=== PATIENT | male | born 1960 | race Caucasian/White ===

== ENCOUNTER 2021-12-29 07:25 | Outpatient (REF) | payer MEDICAID, SELFPAY ==
--- NOTE | ~2021-12-29 | XR_ITS ---
EXAMINATION: XR shoulder RT min 2V CLINICAL INFORMATION: Reason for Exam M25.519 - Pain in unspecified shoulder COMPARISON: None TECHNIQUE: Three views of the shoulder. XR/XR shoulder RT min 2V FINDINGS/IMPRESSION: No acute fracture or dislocation. Mild to moderate degenerative changes of the shoulder worst involving the acromioclavicular joint with there is loss of joint space and degenerative spurring. Glenohumeral joint space is maintained. Soft tissues are unremarkable. Visualized portion of lung appears clear.
== END 2021-12-29 07:26 | disposition home or self-care (01) ==
LOC: HO.HOSX 07:25
PROVIDERS: Visit Provider Physician Assistant
DX: M75.101 Unspecified rotator cuff tear or rupture of right shoulder, not specified as traumatic (principal); E11.9 Type 2 diabetes mellitus without complications
CPT/HCPCS: 73030; J1020

== ENCOUNTER 2022-02-07 16:16 | Outpatient (REF) | payer MEDICAID, SELFPAY ==
--- NOTE | ~2022-02-07 | XR_ITS ---
EXAMINATION: XR RIBS, LEFT CLINICAL INFORMATION: Left-sided rib pain after injury 4 months ago COMPARISON: None TECHNIQUE: 3 views of the left ribs and one view of the chest were obtained. FINDINGS: Lungs are clear. No consolidation, pneumothorax, or pleural effusion. The cardiomediastinal silhouette and pulmonary vasculature are normal. No rib fracture is seen. The left acromioclavicular joint appears slightly widened measuring 1.2 cm. This could be better evaluated with acromioclavicular joints x-ray. XR/XR ribs LT min 3V w CXR1V IMPRESSION: No evidence for acute disease in the chest. No rib fracture. Question widened left acromioclavicular joint.
[2022-02-07 16:31] LABS: MANUAL DIFF FLAG NO
[2022-02-07 16:46] LABS: Basophils Percent Auto 0.5 % (0-2); Eosinophils Absolute Auto 0.1 X10*3/uL (0.0-0.4); Eosinophils Percent Auto 2.1 % (0-4); Hematocrit 38.5 % (42.0-52.0); Hemoglobin 13.8 g/dl (14.0-18.0); Imm Gran Abs Auto 0.02 X10*3/uL (0.00-0.03); Imm Gran Pct Auto 0.3 % (0.0-0.4); Lymphocytes Absolute Auto 1.1 X10*3/uL (1.2-4.9); Lymphocytes Percent Auto 17.8 % (20-40); Mean Corpuscular HGB Conc 35.8 g/dl (31.0-36.0); Mean Corpuscular Hemoglobin 30.2 pg (27.0-33.0); Mean Corpuscular Volume 84.2 fL (80.0-98.0); Mean Platelet Volume 10.3 fL (9.4-12.4); Monocytes Absolute Auto 0.4 X10*3/uL (0.1-1.2); Monocytes Percent Auto 5.7 % (2-11); Neutrophils Absolute Auto 4.5 x10*3/uL (2.0-8.3); Neutrophils Percent Auto 73.6 % (45-73); Platelet Count 161 X10*3/uL (160-400); Red Blood Count 4.57 X10*6/uL (4.60-5.80); Red Cell Distribution Width 12.8 % (11.0-16.0); White Blood Count 6.2 X10*3/uL (4.8-10.8)
[2022-02-07 17:49] LABS: Alanine Aminotransferase 22 U/L (0-40); Alkaline Phosphatase 114 U/L (39-117); Anion Gap 13 (12-20); Aspartate Amino Transferase 16 U/L (5-37); Bilirubin Total 0.7 mg/dL (0.0-1.0); Blood Urea Nitrogen 26 mg/dL (9-16); Calcium 9.3 mg/dL (8.4-10.2); Carbon Dioxide 28 mmol/L (22-29); Chloride 102 mmol/L (96-108); Estimated Glomerular Filt Rate 37; Glucose Random 484 mg/dL (60-115); Potassium 4.5 mmol/L (3.3-5.1); Sodium 138 mmol/L (135-145); Total Protein 6.8 g/dL (6.5-8.0)
[2022-02-07 17:54] LABS: Estimated Average Glucose 286 mg/dL; Hemoglobin A1c % 11.6 %
[2022-02-07 18:02] LABS: Creatinine Urine 51.27 mg/dL; Microalbum/Creatinine Ratio Ur 2034.3 ug/mg cr
== END 2022-02-07 16:17 | disposition home or self-care (01) ==
LOC: HO.LAB 16:16
PROVIDERS: Visit Provider Internal Medicine
DX: I12.9 Hypertensive chronic kidney disease with stage 1 through stage 4 chronic kidney disease, or unspecified chronic kidney disease (principal); N18.9 Chronic kidney disease, unspecified; E11.22 Type 2 diabetes mellitus with diabetic chronic kidney disease; R07.81 Pleurodynia
CPT/HCPCS: 36415; 71101; 80053; 82043; 83036; 85025

== ENCOUNTER 2022-03-23 11:32 | Outpatient (REF) | payer MEDICAID, SELFPAY ==
--- NOTE | ~2022-03-23 | US_ITS ---
EXAMINATION: US RETROPERITONEAL LIMITED (RENAL ONLY) CLINICAL INFORMATION: Chronic kidney disease. COMPARISON: None TECHNIQUE: Real-time imaging of the kidneys. FINDINGS: RIGHT KIDNEY: 11.9 x 5.0 x 5.9 cm (SAG x AP x TRV). The kidney is normal in size, contour, and echogenicity. There are persistent lobulations. Renal cortical thickness is normal. No renal calculi or hydronephrosis. At the interpolar aspect, a 5 mm anechoic, simple cyst is seen. LEFT KIDNEY: 13.4 x 5.1 x 5.1 cm (SAG x AP x TRV). The kidney is normal in size, contour, and echogenicity. There are persistent lobulations. Renal cortical thickness is normal. No calculi or focal parenchymal lesions. No hydronephrosis. US/US renal BI IMPRESSION: A small simple right renal cyst is incidentally noted. No imaging follow-up is recommended. The examination is otherwise unremarkable.
== END 2022-03-23 11:33 | disposition home or self-care (01) ==
LOC: HO.HMGCX 11:32
PROVIDERS: Visit Provider Internal Medicine
DX: N18.9 Chronic kidney disease, unspecified (principal); E11.9 Type 2 diabetes mellitus without complications
CPT/HCPCS: 76775

== ENCOUNTER 2022-04-16 14:14 | Outpatient (REF) | payer MEDICAID, SELFPAY ==
[2022-04-16 16:17] LABS: MANUAL DIFF FLAG NO
[2022-04-16 16:24] LABS: Basophils Percent Auto 0.7 % (0-2); Eosinophils Absolute Auto 0.1 X10*3/uL (0.0-0.4); Eosinophils Percent Auto 1.7 % (0-4); Hematocrit 36.1 % (42.0-52.0); Imm Gran Abs Auto 0.02 X10*3/uL (0.00-0.03); Imm Gran Pct Auto 0.4 % (0.0-0.4); Lymphocytes Absolute Auto 0.9 X10*3/uL (1.2-4.9); Lymphocytes Percent Auto 15.9 % (20-40); Mean Corpuscular Hemoglobin 30.4 pg (27.0-33.0); Mean Corpuscular Volume 84.5 fL (80.0-98.0); Mean Platelet Volume 10.7 fL (9.4-12.4); Monocytes Absolute Auto 0.3 X10*3/uL (0.1-1.2); Monocytes Percent Auto 5.4 % (2-11); Neutrophils Absolute Auto 4.1 x10*3/uL (2.0-8.3); Neutrophils Percent Auto 75.9 % (45-73); Platelet Count 162 X10*3/uL (160-400); Red Blood Count 4.27 X10*6/uL (4.60-5.80); Red Cell Distribution Width 12.5 % (11.0-16.0); White Blood Count 5.3 X10*3/uL (4.8-10.8)
[2022-04-16 16:36] LABS: Estimated Average Glucose 278 mg/dL; Hemoglobin A1c % 11.3 %
[2022-04-16 16:44] LABS: Creatinine Urine 55.43 mg/dL
[2022-04-16 16:50] LABS: Alanine Aminotransferase 17 U/L (0-40); Albumin Level 3.7 g/dL (3.5-5.0); Alkaline Phosphatase 109 U/L (39-117); Anion Gap 13 (12-20); Aspartate Amino Transferase 14 U/L (5-37); Bilirubin Total 0.6 mg/dL (0.0-1.0); Blood Urea Nitrogen 25 mg/dL (9-16); Calcium 8.7 mg/dL (8.4-10.2); Carbon Dioxide 26 mmol/L (22-29); Chloride 99 mmol/L (96-108); Estimated Glomerular Filt Rate 40; Glucose Random 521 mg/dL (60-115); Iron 113 mcg/dL (45-160); Percent Iron Saturation 40 % (15-50); Potassium 4.4 mmol/L (3.3-5.1); Sodium 134 mmol/L (135-145); Total Iron Binding Capacity 280 mcg/dL (228-428); Total Protein 6.2 g/dL (6.5-8.0); Unsaturated Iron Binding 167 ug/dL
[2022-04-16 17:00] LABS: Microalbum/Creatinine Ratio Ur 1533.4 ug/mg cr
== END 2022-04-16 14:15 | disposition home or self-care (01) ==
LOC: HO.HMGCLDS 14:14
PROVIDERS: PCP Internal Medicine; Visit Provider Internal Medicine
DX: E11.22 Type 2 diabetes mellitus with diabetic chronic kidney disease (principal); D63.1 Anemia in chronic kidney disease; N18.9 Chronic kidney disease, unspecified
CPT/HCPCS: 36415; 80053; 82043; 83036; 83540; 85025

== ENCOUNTER 2022-07-05 14:36 | Outpatient (REF) | payer MEDICAID, SELFPAY ==
--- NOTE | ~2022-07-05 | MR_ITS ---
EXAMINATION: MR THORACIC SPINE WITHOUT CONTRAST CLINICAL INFORMATION: Status post fall. Neuropathic pain. Rule out compression fracture. DDD. COMPARISON: None TECHNIQUE: MRI of the thoracic spine was obtained using routine sequences without contrast. FINDINGS: The thoracic vertebral bodies demonstrate normal alignment. Mild chronic nonedematous superior endplate compression fractures are seen at T6 and T7. The thoracic vertebral body heights are otherwise preserved. There is no significant disc height loss. The thoracic cord signal appears normal. No spinal canal or neural foraminal stenosis is seen. T5-T6: Mild central protrusion. T7-T8: Small right paracentral protrusion. T8-T9: Right paracentral protrusion. The extraspinal soft tissues are within normal limits. MR/MR thoracic spine wo con IMPRESSION: Mild chronic superior endplate compression fractures at T6 and T7. No significant narrowing of the spinal canal or neural foramina. No cord signal abnormality.
== END 2022-07-05 14:37 | disposition home or self-care (01) ==
LOC: HO.MRI 14:36
PROVIDERS: Visit Provider Internal Medicine
DX: R07.82 Intercostal pain (principal); Z91.81 History of falling
CPT/HCPCS: 72146

== ENCOUNTER 2022-08-13 08:43 | Outpatient (REF) | payer MEDICAID, SELFPAY ==
--- NOTE | ~2022-08-13 | CT_ITS ---
EXAMINATION: CT CHEST WITHOUT CONTRAST CLINICAL INFORMATION: Chest pain COMPARISON: Chest x-ray with Ribs 02/07/2022 TECHNIQUE: Multidetector volumetric CT imaging of the chest was done. Axial MIP volume rendering provided. Sagittal and coronal reformatted images were obtained. This CT examination was performed using dose optimization techniques as appropriate, variously including the following: *Automated exposure control *Adjustment of mA and/or kV according to patient size (this includes techniques or standardized protocols for targeted exams where dose is matched to indication/reason for exam; i.e. extremities or head) *Use of iterative reconstruction technique DLP: 109 mGy-cm FINDINGS: RECORDS CLERK: Well-expanded lungs. LUNGS: The lungs are well-expanded without any acute pneumonic process. There is a 3 mm noncalcified nodule right middle lobe axial image 311/7 and 4 mm calcified nodule right middle lobe axial image 397/7. There is no atelectatic changes, groundglass density or interstitial thickening. MEDIASTINUM: The thyroid lobes are symmetrical and normal. The central trachea and the bronchi widely patent. Heart size and the great vessels are normal caliber. No pericardial effusion seen. No abnormal size mediastinal or hilar lymph nodes. CORONARY ARTERY CALCIFICATION: None visualized on this study. PLEURA: There is no pleural effusion. No pleural mass or thickening. AXILLA: Small shotty lymph nodes are seen in the axilla. The chest wall is unremarkable. UPPER ABDOMEN: Multiple small radiopaque gallstones are noted. Visualized liver, spleen and bilateral adrenal glands and pancreas is unremarkable. OSSEOUS STRUCTURES: No aggressive lytic or sclerotic process seen. CT/CT chest wo IV con IMPRESSION: 1. There is a 3 mm noncalcified and 4 mm calcified nodules right middle lobe. 2. No abnormal mediastinal or axillary lymph nodes. 3. Cholelithiasis without wall thickening. Fleischner guidelines were followed.
== END 2022-08-13 08:44 | disposition home or self-care (01) ==
LOC: HO.CT 08:43
PROVIDERS: PCP Internal Medicine; Visit Provider Internal Medicine
DX: R07.9 Chest pain, unspecified (principal)
CPT/HCPCS: 71250

== ENCOUNTER 2022-10-29 10:44 | Outpatient (REF) | payer MEDICAID, SELFPAY ==
--- NOTE | ~2022-10-29 | XR_ITS ---
EXAMINATION: XR KNEE AP STANDING XR KNEE, LEFT CLINICAL INFORMATION: Pain. COMPARISON: None TECHNIQUE: AP bilateral standing view of the knees was obtained. Lateral and axial views of the left knee were obtained. FINDINGS: Bones and soft tissues are normal. No fracture or joint effusion. Alignment is anatomic. The bilateral joint space compartments are well maintained. No abnormal soft tissue calcification. There are atherosclerotic calcifications. There is left prepatellar soft tissue swelling. XR/XR knee standing BI IMPRESSION: 1. No fracture or dislocation is seen of the bilateral knees. 2. There is left prepatellar soft tissue swelling.
--- NOTE | ~2022-10-29 | XR_ITS ---
EXAMINATION: XR KNEE AP STANDING XR KNEE, LEFT CLINICAL INFORMATION: Pain. COMPARISON: None TECHNIQUE: AP bilateral standing view of the knees was obtained. Lateral and axial views of the left knee were obtained. FINDINGS: Bones and soft tissues are normal. No fracture or joint effusion. Alignment is anatomic. The bilateral joint space compartments are well maintained. No abnormal soft tissue calcification. There are atherosclerotic calcifications. There is left prepatellar soft tissue swelling. XR/XR knee LT 2V IMPRESSION: 1. No fracture or dislocation is seen of the bilateral knees. 2. There is left prepatellar soft tissue swelling.
== END 2022-10-29 10:45 | disposition home or self-care (01) ==
LOC: HO.HOSX 10:44
PROVIDERS: PCP Internal Medicine; Visit Provider Physician Assistant
DX: M25.561 Pain in right knee (principal); M25.562 Pain in left knee; M25.462 Effusion, left knee; M70.42 Prepatellar bursitis, left knee
CPT/HCPCS: 20610; 73560; 73565; 99202

== ENCOUNTER 2022-10-29 12:25 | Outpatient (REF) | payer MEDICAID, SELFPAY ==
[2022-10-29 13:36] LABS: MANUAL DIFF FLAG NO
[2022-10-29 13:42] LABS: Basophils Percent Auto 0.3 % (0-2); Eosinophils Absolute Auto 0.1 X10*3/uL (0.0-0.4); Eosinophils Percent Auto 1.7 % (0-4); Hematocrit 32.9 % (42.0-52.0); Hemoglobin 11.7 g/dl (14.0-18.0); Imm Gran Abs Auto 0.03 X10*3/uL (0.00-0.03); Imm Gran Pct Auto 0.5 % (0.0-0.4); Lymphocytes Absolute Auto 0.9 X10*3/uL (1.2-4.9); Lymphocytes Percent Auto 15.4 % (20-40); Mean Corpuscular HGB Conc 35.6 g/dl (31.0-36.0); Mean Corpuscular Hemoglobin 30.1 pg (27.0-33.0); Mean Corpuscular Volume 84.6 fL (80.0-98.0); Mean Platelet Volume 10.2 fL (9.4-12.4); Monocytes Absolute Auto 0.5 X10*3/uL (0.1-1.2); Monocytes Percent Auto 8.3 % (2-11); Neutrophils Absolute Auto 4.5 x10*3/uL (2.0-8.3); Neutrophils Percent Auto 73.8 % (45-73); Platelet Count 198 X10*3/uL (160-400); Red Blood Count 3.89 X10*6/uL (4.60-5.80); Red Cell Distribution Width 12.5 % (11.0-16.0)
[2022-10-29 13:51] LABS: Estimated Average Glucose 217 mg/dL; Hemoglobin A1c % 9.2 %
[2022-10-29 14:41] LABS: Creatinine Urine 74.15 mg/dL
[2022-10-29 14:42] LABS: Alanine Aminotransferase 10 U/L (0-40); Albumin Level 3.3 g/dL (3.5-5.0); Alkaline Phosphatase 93 U/L (39-117); Anion Gap 10 (12-20); Aspartate Amino Transferase 10 U/L (5-37); Bilirubin Total 0.5 mg/dL (0.0-1.0); Blood Urea Nitrogen 24 mg/dL (9-16); Calcium 8.8 mg/dL (8.4-10.2); Carbon Dioxide 29 mmol/L (22-29); Chloride 102 mmol/L (96-108); Estimated Glomerular Filt Rate 40; Glucose Random 345 mg/dL (60-115); Sodium 137 mmol/L (135-145); Total Protein 6.1 g/dL (6.5-8.0); Uric Acid 2.7 mg/dL (3.4-7.0)
[2022-10-29 14:57] LABS: Microalbum/Creatinine Ratio Ur 2258.9 ug/mg cr
== END 2022-10-29 12:26 | disposition home or self-care (01) ==
LOC: HO.10HDL 12:25
PROVIDERS: Visit Provider Internal Medicine
DX: I12.9 Hypertensive chronic kidney disease with stage 1 through stage 4 chronic kidney disease, or unspecified chronic kidney disease (principal); E11.22 Type 2 diabetes mellitus with diabetic chronic kidney disease; N18.9 Chronic kidney disease, unspecified; M25.562 Pain in left knee
CPT/HCPCS: 36415; 80053; 82043; 83036; 84550; 85025

== ENCOUNTER 2022-10-29 12:43 | Outpatient (REF) | payer MEDICAID, SELFPAY ==
--- NOTE | ~2022-10-29 | US_ITS ---
EXAMINATION: US VENOUS ULTRASOUND WITH DOPPLER LOWER EXTREMITY, LEFT CLINICAL INFORMATION: Left lower extremity edema. COMPARISON: None. TECHNIQUE: Ultrasound of the deep veins is performed from the hip to the calf with compression sonography and color and pulse Doppler assessment. Spectral analysis with color-flow imaging is performed. FINDINGS: Hyperechoic filling defects in the proximal left great saphenous vein at approximately 1 cm from the saphenofemoral junction with patent flow on color Doppler. Otherwise, the visualized common femoral vein, superficial femoral vein, profunda femoral vein, popliteal vein, and the trifurcation region shows no evidence of deep venous thrombosis. There is no significant popliteal fossa cyst. Bilateral inguinal lymphadenopathy, for example measuring 4.5 x 0.9 x 2.4 cm in the right groin. US/US venous duplex LE LT IMPRESSION: 1. Age-indeterminate hyperechoic filling defects in the proximal left great saphenous vein could be related with nonocclusive thrombosis. 2. Bilateral inguinal lymphadenopathy.
== END 2022-10-29 12:44 | disposition home or self-care (01) ==
LOC: HO.US 12:43
PROVIDERS: PCP Internal Medicine; Visit Provider Internal Medicine
DX: R22.42 Localized swelling, mass and lump, left lower limb (principal)
CPT/HCPCS: 93971

== ENCOUNTER → 2022-11-01 10:39 | Outpatient (BNVA) | payer MEDICAID, SELFPAY | PROVIDERS: PCP Internal Medicine; Visit Provider Physician Assistant | DX: M25.462 Effusion, left knee (principal); M70.42 Prepatellar bursitis, left knee | CPT/HCPCS: 99212 ==

== ENCOUNTER → 2022-11-12 11:26 | Outpatient (BNVA) | payer MEDICAID, SELFPAY | PROVIDERS: PCP Internal Medicine; Visit Provider Physician Assistant | DX: M25.462 Effusion, left knee (principal); M70.42 Prepatellar bursitis, left knee | CPT/HCPCS: 99212 ==

== ENCOUNTER 2022-12-24 13:13 | Outpatient (REF) | payer MEDICAID, SELFPAY ==
--- NOTE | ~2022-12-24 | XR_ITS ---
EXAMINATION: XR FOOT, RIGHT CLINICAL INFORMATION: Ulcer. COMPARISON: None available. TECHNIQUE: AP, lateral, and oblique views of the right foot. FINDINGS: Ankle mortise and subtalar joints are normal. No visible acute fracture or dislocation seen. There are vascular calcifications noted. There is mild soft tissue swelling dorsal mid and distal foot. XR/XR foot RT min 3V IMPRESSION: Mild soft tissue swelling dorsal mid and distal foot. No visible acute fracture, dislocation or subluxation seen.
[2022-12-24 14:10] LABS: MANUAL DIFF FLAG NO
[2022-12-24 14:32] LABS: Estimated Average Glucose 235 mg/dL; Hemoglobin A1c % 9.8 %
[2022-12-24 14:35] LABS: Basophils Percent Auto 0.3 % (0-2); Eosinophils Absolute Auto 0.1 X10*3/uL (0.0-0.4); Hemoglobin 11.6 g/dl (14.0-18.0); Imm Gran Abs Auto 0.07 X10*3/uL (0.00-0.03); Imm Gran Pct Auto 0.6 % (0.0-0.4); Lymphocytes Absolute Auto 0.7 X10*3/uL (1.2-4.9); Lymphocytes Percent Auto 6.8 % (20-40); Mean Corpuscular HGB Conc 35.2 g/dl (31.0-36.0); Mean Corpuscular Volume 85.3 fL (80.0-98.0); Monocytes Absolute Auto 0.7 X10*3/uL (0.1-1.2); Monocytes Percent Auto 6.3 % (2-11); Neutrophils Absolute Auto 9.2 x10*3/uL (2.0-8.3); Platelet Count 257 X10*3/uL (160-400); Red Blood Count 3.87 X10*6/uL (4.60-5.80); Red Cell Distribution Width 12.4 % (11.0-16.0); White Blood Count 10.8 X10*3/uL (4.8-10.8)
[2022-12-24 15:14] LABS: Alanine Aminotransferase 18 U/L (0-40); Albumin Level 3.1 g/dL (3.5-5.0); Alkaline Phosphatase 152 U/L (39-117); Aspartate Amino Transferase 13 U/L (5-37); Bilirubin Total 0.6 mg/dL (0.0-1.0); Blood Urea Nitrogen 45 mg/dL (9-16); C Reactive Protein 11.64 mg/dL (< or = 0.50); Calcium 8.7 mg/dL (8.4-10.2); Estimated Glomerular Filt Rate 33; Total Protein 6.2 g/dL (6.5-8.0)
[2022-12-24 15:15] LABS: Anion Gap 13 (12-20); Carbon Dioxide 27 mmol/L (22-29); Chloride 99 mmol/L (96-108); Potassium 4.5 mmol/L (3.3-5.1); Sodium 134 mmol/L (135-145)
[2022-12-24 15:23] LABS: Glucose Random 413 mg/dL (60-115)
== END 2022-12-24 13:14 | disposition home or self-care (01) ==
LOC: HO.10HDL 13:13
PROVIDERS: Visit Provider Internal Medicine
DX: I12.9 Hypertensive chronic kidney disease with stage 1 through stage 4 chronic kidney disease, or unspecified chronic kidney disease (principal); E11.22 Type 2 diabetes mellitus with diabetic chronic kidney disease; N18.9 Chronic kidney disease, unspecified; L97.519 Non-pressure chronic ulcer of other part of right foot with unspecified severity
CPT/HCPCS: 36415; 73630; 80053; 83036; 85025; 86140; 87070; 87205

== ENCOUNTER → 2022-12-25 13:55 | Outpatient (BNVA) | payer MEDICAID, SELFPAY | PROVIDERS: PCP Internal Medicine; Visit Provider Surgery | DX: E11.628 Type 2 diabetes mellitus with other skin complications (principal); T14.8XXA Other injury of unspecified body region, initial encounter | CPT/HCPCS: 99202 ==

== ENCOUNTER → 2022-12-27 14:14 | Outpatient (BNVA) | payer MEDICAID, SELFPAY | PROVIDERS: PCP Internal Medicine; Visit Provider Surgery | DX: Z48.00 Encounter for change or removal of nonsurgical wound dressing (principal) | CPT/HCPCS: 99211 ==

== ENCOUNTER → 2022-12-28 10:49 | Outpatient (BNVA) | payer MEDICAID, SELFPAY | PROVIDERS: PCP Internal Medicine; Visit Provider Surgery | DX: Z48.00 Encounter for change or removal of nonsurgical wound dressing (principal) | CPT/HCPCS: 99211 ==

== ENCOUNTER → 2022-12-31 14:38 | Outpatient (BNVA) | payer MEDICAID, SELFPAY | PROVIDERS: PCP Internal Medicine; Visit Provider Surgery | DX: Z48.00 Encounter for change or removal of nonsurgical wound dressing (principal) | CPT/HCPCS: 99211 ==

== ENCOUNTER → 2023-01-04 10:56 | Outpatient (BNVA) | payer MEDICAID, SELFPAY | PROVIDERS: PCP Internal Medicine; Visit Provider Surgery | DX: Z09 Encounter for follow-up examination after completed treatment for conditions other than malignant neoplasm (principal); S91.309D Unspecified open wound, unspecified foot, subsequent encounter; R60.9 Edema, unspecified | CPT/HCPCS: 99212 ==

== ENCOUNTER → 2023-01-14 14:55 | Outpatient (BNVA) | payer MEDICAID, SELFPAY | PROVIDERS: PCP Internal Medicine; Referring Provider Internal Medicine; Visit Provider Surgery | DX: Z48.00 Encounter for change or removal of nonsurgical wound dressing (principal) | CPT/HCPCS: 99211 ==

== ENCOUNTER → 2023-01-16 08:21 | Outpatient (BNVA) | payer MEDICAID, SELFPAY | PROVIDERS: PCP Internal Medicine; Visit Provider Surgery | DX: S91.301D Unspecified open wound, right foot, subsequent encounter (principal) | CPT/HCPCS: 99212 ==

== ENCOUNTER → 2023-01-23 10:47 | Outpatient (BNVA) | payer MEDICAID, SELFPAY | PROVIDERS: PCP Internal Medicine; Visit Provider Surgery | DX: S91.001D Unspecified open wound, right ankle, subsequent encounter (principal) | CPT/HCPCS: 99212 ==

== ENCOUNTER 2023-01-25 11:18 | Outpatient (REF) | payer MEDICAID, SELFPAY ==
[2023-01-25 13:12] LABS: MANUAL DIFF FLAG NO
[2023-01-25 13:20] LABS: Basophils Percent Auto 0.5 % (0-2); Eosinophils Absolute Auto 0.1 X10*3/uL (0.0-0.4); Eosinophils Percent Auto 1.8 % (0-4); Hematocrit 31.7 % (42.0-52.0); Hemoglobin 10.7 g/dl (14.0-18.0); Imm Gran Abs Auto 0.01 X10*3/uL (0.00-0.03); Imm Gran Pct Auto 0.2 % (0.0-0.4); Lymphocytes Absolute Auto 0.9 X10*3/uL (1.2-4.9); Lymphocytes Percent Auto 16.1 % (20-40); Mean Corpuscular HGB Conc 33.8 g/dl (31.0-36.0); Mean Corpuscular Hemoglobin 29.6 pg (27.0-33.0); Mean Corpuscular Volume 87.8 fL (80.0-98.0); Mean Platelet Volume 10.8 fL (9.4-12.4); Monocytes Absolute Auto 0.4 X10*3/uL (0.1-1.2); Monocytes Percent Auto 6.4 % (2-11); Neutrophils Absolute Auto 4.2 x10*3/uL (2.0-8.3); Platelet Count 154 X10*3/uL (160-400); Red Blood Count 3.61 X10*6/uL (4.60-5.80); Red Cell Distribution Width 14.2 % (11.0-16.0); White Blood Count 5.7 X10*3/uL (4.8-10.8)
[2023-01-25 13:37] LABS: Estimated Average Glucose 235 mg/dL; Hemoglobin A1c % 9.8 %
[2023-01-25 13:59] LABS: Alanine Aminotransferase 12 U/L (0-40); Albumin Level 3.5 g/dL (3.5-5.0); Alkaline Phosphatase 93 U/L (39-117); Anion Gap 11 (12-20); Aspartate Amino Transferase 15 U/L (5-37); Bilirubin Total 0.5 mg/dL (0.0-1.0); Blood Urea Nitrogen 30 mg/dL (9-16); C Reactive Protein < 0.10 mg/dL (< or = 0.50); Calcium 9.1 mg/dL (8.4-10.2); Carbon Dioxide 26 mmol/L (22-29); Chloride 105 mmol/L (96-108); Estimated Glomerular Filt Rate 38; Glucose Random 287 mg/dL (60-115); Potassium 4.3 mmol/L (3.3-5.1); Sodium 138 mmol/L (135-145); Total Protein 6.7 g/dL (6.5-8.0)
[2023-01-25 14:16] LABS: Erythrocyte Sedimentation Rate 34 MM/HR (0-15)
== END 2023-01-25 11:19 | disposition home or self-care (01) ==
LOC: HO.10HDL 11:18
PROVIDERS: Visit Provider Internal Medicine
DX: I12.9 Hypertensive chronic kidney disease with stage 1 through stage 4 chronic kidney disease, or unspecified chronic kidney disease (principal); E11.22 Type 2 diabetes mellitus with diabetic chronic kidney disease; N18.9 Chronic kidney disease, unspecified; R51.9 Headache, unspecified
CPT/HCPCS: 36415; 80053; 83036; 85025; 85652; 86140

== ENCOUNTER 2023-02-15 07:49 | Outpatient (REF) | payer MEDICAID, SELFPAY ==
--- NOTE | ~2023-02-15 | MR_ITS ---
EXAMINATION: MR CERVICAL SPINE WITHOUT CONTRAST CLINICAL INFORMATION: 62-year-old with trunk numbness status post fall. Evaluate for stenosis, myelopathy. COMPARISON: None available. TECHNIQUE: MRI of the cervical spine was obtained using routine sequences without contrast. FINDINGS: Alignment: Lordotic curvature is maintained. There is trace anterolisthesis at C7-T1. Craniocervical Junction/C1-C2 Articulations: The atlantooccipital joints are intact and aligned. There is [id number] retrolisthesis of the right C1-C2 facet joint, which is nonspecific but could be secondary to a mild degree of head rotation and/or ligamentous laxity. There are some degenerative changes at the atlantooccipital joints bilaterally with a small effusion at the right atlantooccipital joint. Visualized Intracranial Structures: Within normal limits. Vertebral Bodies: Vertebral body heights are well-maintained. Disc Spaces and Endplates: Severe disc space height loss at C6-C7 and moderate to severe disc space height loss at C5-C6 noted with disc desiccation, Schmorl's nodes and spondylosis at these levels. Mild disc space height loss at C7-T1. Bone Marrow: Type II degenerative marrow signal changes noted along the endplates at C5-C6 and C6-C7. No suspicious marrow replacing process or bone marrow edema. C2-C3: Small posterior disc osteophyte complex noted with slight indentation of the ventral thecal sac without cord impingement. Ligamentum flavum thickening is noted with borderline spinal canal stenosis. There is minor uncinate process spurring bilaterally with mild left and moderate right-sided facet arthropathy. There is moderate right-sided and mild left-sided neural foraminal stenosis. C3-C4: Shallow central to right paramedian disc protrusion, with flattening of the ventral dural sac without cord impingement. Borderline spinal canal stenosis. Uncovertebral spurring noted bilaterally with minor facet arthropathy without significant neural foraminal stenosis. C4-C5: Central to right paramedian disc protrusion with effacement of the ventral dural sac slightly to the right of midline with slight ventral cord flattening on the right and mild ligamentum flavum thickening with mild central spinal canal stenosis. There is uncovertebral spurring bilaterally and mild to moderate bilateral facet arthropathy with mild to moderate right-sided neural foraminal stenosis. C5-C6: Posterolateral disc osteophyte complex is noted with flattening of the ventral dural sac without cord impingement. Borderline to mild spinal canal stenosis is noted. Bilateral uncovertebral spurring and minor facet arthropathy is noted with moderate to severe bilateral neural foraminal stenosis. C6-C7: Broad-based disc osteophyte complex noted, with flattening of the ventral dural sac with mild spinal canal stenosis. Bilateral uncovertebral spurring is noted, left more than right with severe left-sided and mild right-sided neural foraminal stenosis. C7-T1: Trace unroofing of the posterior disc margin is noted with slight flattening of the ventral dural sac without cord impingement or canal stenosis. There is moderate left and mild right facet arthropathy with posterolateral disc osteophyte complex, left more than right. There is moderate to severe left-sided and mild right-sided neural foraminal stenosis. T1-T2: Minor posterolateral disc osteophyte complex on the left without significant canal stenosis. Minor foraminal narrowing on the left. Spinal Cord: The cervical and visualized upper thoracic spinal cord demonstrates normal signal intensity without focal lesion, edema or syrinx. Extracranial Soft Tissues: The visualized extracranial head/neck soft tissues are unremarkable within the limitations of the study. Signal voids are seen in the visualized major arterial structures throughout the neck. No prevertebral soft tissue swelling. MR/MR cervical spine wo con IMPRESSION: 1. Multilevel DDD and spondylosis, with multilevel disc osteophyte complexes and disc protrusions as described above with mild degrees of spinal canal stenosis with slight right-sided ventral cord flattening at C4-C5. 2. Multilevel DJD as described above with multilevel bilateral neural foraminal stenosis, most significant on the left at C6-C7 and bilaterally at C5-C6. 3. Degenerative changes at the atlantooccipital joints with retrolisthesis of the right C1-C2 facet joint and degenerative changes at the atlantooccipital joints with a small right atlantooccipital joint effusion.
== END 2023-02-15 07:50 | disposition home or self-care (01) ==
LOC: HO.MRI 07:49
PROVIDERS: PCP Internal Medicine; Visit Provider Psychiatry & Neurology Neurology
DX: R20.0 Anesthesia of skin (principal); M48.04 Spinal stenosis, thoracic region
CPT/HCPCS: 72141

== ENCOUNTER → 2023-03-08 08:48 | Outpatient (BNVA) | payer MEDICAID, SELFPAY | PROVIDERS: PCP Internal Medicine; Visit Provider Surgery | DX: Z09 Encounter for follow-up examination after completed treatment for conditions other than malignant neoplasm (principal); E10.628 Type 1 diabetes mellitus with other skin complications; S91.309D Unspecified open wound, unspecified foot, subsequent encounter | CPT/HCPCS: 99212 ==

== ENCOUNTER 2023-05-10 11:33 | Outpatient (REF) | payer MEDICAID, SELFPAY ==
[2023-05-10 13:20] LABS: MANUAL DIFF FLAG NO
[2023-05-10 13:31] LABS: Basophils Percent Auto 0.5 % (0-2); Eosinophils Absolute Auto 0.1 X10*3/uL (0.0-0.4); Eosinophils Percent Auto 2.2 % (0-4); Hematocrit 33.2 % (42.0-52.0); Hemoglobin 11.8 g/dl (14.0-18.0); Imm Gran Abs Auto 0.02 X10*3/uL (0.00-0.03); Imm Gran Pct Auto 0.4 % (0.0-0.4); Lymphocytes Absolute Auto 0.9 X10*3/uL (1.2-4.9); Lymphocytes Percent Auto 17.2 % (20-40); Mean Corpuscular HGB Conc 35.5 g/dl (31.0-36.0); Mean Corpuscular Hemoglobin 31.1 pg (27.0-33.0); Mean Corpuscular Volume 87.4 fL (80.0-98.0); Mean Platelet Volume 11.3 fL (9.4-12.4); Monocytes Absolute Auto 0.3 X10*3/uL (0.1-1.2); Monocytes Percent Auto 5.5 % (2-11); Neutrophils Absolute Auto 4.1 x10*3/uL (2.0-8.3); Neutrophils Percent Auto 74.2 % (45-73); Platelet Count 135 X10*3/uL (160-400); Red Cell Distribution Width 12.7 % (11.0-16.0); White Blood Count 5.5 X10*3/uL (4.8-10.8)
[2023-05-10 13:33] LABS: Estimated Average Glucose 226 mg/dL; Hemoglobin A1c % 9.5 % (<6.0)
[2023-05-10 14:15] LABS: Anion Gap 10 (12-20); Blood Urea Nitrogen 33 mg/dL (9-16); Calcium 9.1 mg/dL (8.4-10.2); Carbon Dioxide 27 mmol/L (22-29); Chloride 103 mmol/L (96-108); Estimated Glomerular Filt Rate 33; Glucose Random 359 mg/dL (60-115); Potassium 4.1 mmol/L (3.3-5.1); Sodium 136 mmol/L (135-145)
== END 2023-05-10 11:34 | disposition home or self-care (01) ==
LOC: HO.10HDL 11:33
PROVIDERS: Visit Provider Internal Medicine
DX: E11.22 Type 2 diabetes mellitus with diabetic chronic kidney disease (principal); I12.9 Hypertensive chronic kidney disease with stage 1 through stage 4 chronic kidney disease, or unspecified chronic kidney disease; N18.9 Chronic kidney disease, unspecified
CPT/HCPCS: 36415; 80048; 83036; 85025

== ENCOUNTER 2023-06-14 10:53 | Outpatient (REF) | payer MEDICAID, SELFPAY ==
--- NOTE | ~2023-06-14 | MR_ITS ---
MRI OF THE BRAIN WITHOUT IV CONTRAST INDICATION: PARESTHESIA ANESTHESIA R/O M.S. COMPARISON: None available. TECHNIQUE: Multiplanar multisequence MR imaging of the brain was obtained without IV contrast. FINDINGS: There is no hydrocephalus, extra-axial surface collection, or herniation. There is global cerebral volume loss. There are extensive T2 signal changes scattered throughout the supratentorial white matter and in an overall nonspecific distribution. Findings could be seen in the setting of chronic microangiopathy, demyelinating disease, and a variety of additional white matter processes. The major flow voids at the skull base are preserved. There is no acute infarct on diffusion-weighted imaging. There is no intracranial hemorrhage on the gradient recalled echo acquisition. The midline structures are normal. The cerebellar tonsils are normally positioned. The The craniocervical junction is normal. Osseous marrow signal intensity is homogenous. The visualized soft tissues are unremarkable. MR/MR head/brain wo con IMPRESSION: There are extensive T2 signal changes scattered throughout the supratentorial white matter and in an overall nonspecific distribution. Findings could be seen in the setting of chronic microangiopathy, demyelinating disease, and a variety of additional white matter processes. There is global cerebral volume loss.
== END 2023-06-14 10:54 | disposition home or self-care (01) ==
LOC: HO.MRI 10:53
PROVIDERS: PCP Internal Medicine; Visit Provider Psychiatry & Neurology Neurology
DX: R20.0 Anesthesia of skin (principal); R20.2 Paresthesia of skin; G35 Multiple sclerosis
CPT/HCPCS: 70551

== ENCOUNTER 2023-10-24 12:22 | Outpatient (REF) | payer MEDICAID, SELFPAY ==
[2023-10-24 13:37] LABS: Appearance Urine Clear; Color Urine Yellow; Glucose Urine UA >=1000 mg/dL (Negative); Leukocyte Esterase Urine Negative (Negative); Nitrite Urine Negative (Negative); PH 5.5 (5.0-9.0); Specific Gravity - Urine 1.025 (1.005-1.025); UMIC TRIGGER UACC YES; Urine Blood Moderate (2+) (Negative); Urine Ketones Negative (Negative); Urine Protein 300 (3+) mg/dL (Neg-Trace)
[2023-10-24 13:59] LABS: Bacteria Urine 1+ (None Seen); Hyaline Casts Urine 0-2 /LPF (0-2); Squamous Epithelial Cell Urine 0-2 /HPF (0-2); UACC Culture Trigger YES
== END 2023-10-24 12:23 | disposition home or self-care (01) ==
LOC: HO.10HDLNP 12:22
PROVIDERS: Visit Provider Internal Medicine
DX: R30.0 Dysuria (principal); E11.9 Type 2 diabetes mellitus without complications; I10 Essential (primary) hypertension; N18.9 Chronic kidney disease, unspecified
CPT/HCPCS: 81001; 87086; 87088; 87186

== ENCOUNTER 2024-03-09 10:46 | Outpatient (REF) | payer MEDICAID, SELFPAY ==
--- NOTE | ~2024-03-09 | XR_ITS ---
EXAMINATION: XR KNEE, LEFT CLINICAL INFORMATION: Left knee pain COMPARISON: Radiographs 10/29/2022 TECHNIQUE: AP standing view both knees. Lateral and sunrise views of the left knee. FINDINGS: Anterior soft tissue swelling, less than previous. No fracture or malalignment. Prominent vascular calcifications are noted. No joint space narrowing. Probable joint effusion. XR/XR knee LT 3V IMPRESSION: Anterior soft tissue swelling, less than previous. Probable joint effusion. No acute osseous abnormality.
== END 2024-03-09 10:47 | disposition home or self-care (01) ==
LOC: HO.HOSX 10:46
PROVIDERS: Visit Provider Physician Assistant
DX: M17.12 Unilateral primary osteoarthritis, left knee (principal)
CPT/HCPCS: 20610; 73562; 99212; J1010

== ENCOUNTER 2024-03-09 10:52 | Outpatient (AMB) | payer MEDICAID, SELFPAY ==
--- NOTE | 2024-03-09 11:16 | MHC.OFFVIS ---
Vital Signs 03/09/24 11:23 Height 5 ft 7 in Weight 120 lb BMI 18.8 Handedness Right Intake Visit Reasons: [employer] - LT knee pain Intake Note: Juanito is a 63 year old male who presents today as a new patient for a evaluation of his left knee pain. Patient reports ongoing pain for about 6 months. He states that his pain is mainly on the medial and lateral of the knee. Pain is worse when he is bending his knee and when he is getting up from a sitting position. Patient has tried and failed 3+ months NSAIDs/Tylenol with no relief. Patient has tied and failed 3+ months of at home exercises/knee brace. Allergies No Known Allergies Allergy (Verified 03/09/24 11:25) Medication List - Last Reconciled 03/09/24 by Lilli Rodriguez PA-C amlodipine 5 mg PO DAILY atorvastatin 40 mg PO BEDTIME carvedilol 12.5 mg PO BID dulaglutide (Trulicity) mg subcut QWEEK flash glucose sensor (YieldPlanetStyle Andre 14 Day Sensor kit) As directed gabapentin 100 mg PO DAILY glipizide ER 5 mg PO BID hydralazine 25 mg PO TID insulin glargine (Lantus Solostar U-100 Insulin) 20 units subcut QAM insulin lispro (Humalog KwikPen (U-100) Insulin) subcut lisinopril 5 mg PO DAILY mirtazapine 15 mg PO QPM naproxen 250 mg PO BID pen needle, diabetic (BD Ultra-Fine Short Pen Needle) As directed sulfamethoxazole-trimethoprim 800-160 mg (Bactrim DS) 1 tab PO BID 10 days HPI HPI [employer] - LT knee pain: Details: 63-year-old male who presents to the office today for an evaluation of left knee pain for 6 months. He states he has pain at the medial aspect and lateral aspect of his knee that is worse with bending and getting up from a sitting position. He denies any pain with twisting motions. He has tried 3+ months of Tylenol as well as 3+ months of home exercises and knee brace without relief. He has a history of diabetes. His sugar level is well controlled. [facility] Medical History Diabetic acidosis, type I High blood pressure High cholesterol Kidney disease Social History (Updated 03/09/24 @ 11:23 by Sebastien Monroy) Alcohol intake: current Alcohol intake frequency: holidays/special occasions only Patient Tobacco Use Status: Never used Tobacco Current occupational status: employed 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 Review of Systems Const All systems reviewed & are unremarkable except as noted in HPI and below Physical Exam Vital Signs: BMI result Body Mass Index 18.8 Const General: cooperative, healthy appearing, comfortable, no acute distress, well developed and alert Orientation/consciousness: patient oriented x3 HEENT Head: Yes normal to inspection, Yes normocephalic and Yes atraumatic Eyes General: appearance normal, both eyes and all related structures Resp Effort & Inspection: normal respiratory effort and able to speak in complete sentences Cardio Rate: regular rate Peripheral pulses: Peripheral pulses 2+ throughout GI Palpation (GI): Soft to palpation Skin Lesions: no lesions Rashes: no rashes Neuro General: patient oriented x3 Extrem Other: Left knee: Skin intact, no erythema or joint effusion. Tenderness along the medial joint line. Full ROM with crepitus. Negative Naveen?s. No ligamentous laxity. NVI. ? Office Procedures Joint Injection/Drain Joint Injection/Drain Primary Site: left knee Prep: site was prepped using aseptic technique, ethochloride spray was applied and injection warnings given Injected: 80 mg of, DepoMedrol, with 8 mL of, 1% plain lidocaine and in the joint Approach Used: anterolateral Procedure: The patient tolerated the procedure well and there was some relief with the local anesthesia Coding 88115 - Glenohumeral/Tronchanteric Bursa/Intraarticular Procedure code (CPT) selection complete Assessment & Plan Assessment & Plan (1) Osteoarthritis of left knee: Code(s): M17.12 - Unilateral primary osteoarthritis, left knee Category: Medical Plan We discussed options today, which include steroid injection. The patient did consent to move forward with the left knee injection, which was tolerated well. I recommended rest, ice, and elevation and OTC anti-inflammatories as needed for discomfort. If symptoms persist or worsen over the next 6-8 weeks, patient will contact the office, otherwise follow-up as needed. Orders: Orders XR knee LT 3V 03/09/24 M25.562 - Pain in left knee Patient Instructions: Scribed for Ta-Ale Meuse, PA-C, by James Harvey medical billing coordinator, on 03/09/2024 at 10:45 AM EST.? I, Lilli Rodriguez PA-C, have personally reviewed and agree with the information entered by the scribe. Coding Level of Care Code Est Pt Level 3 (27245) Diagnoses Osteoarthritis of left knee M17.12 CPT Codes Coding - Joint 7: 94664 - Glenohumeral/Tronchanteric Bursa/Intraarticular ([id number])
[2024-03-09 11:23] VITALS: BMI 18.8
== END 2024-03-09 11:44 | disposition home or self-care (01) ==
PROVIDERS: PCP Internal Medicine; Visit Provider Physician Assistant
DX: M17.12 Unilateral primary osteoarthritis, left knee (principal)
CPT/HCPCS: 20610; 99213

== ENCOUNTER 2024-07-03 11:31 | Outpatient (REF) | payer MEDICAID, SELFPAY ==
[2024-07-03 11:52] LABS: MANUAL DIFF FLAG NO
[2024-07-03 12:32] LABS: Basophils Percent Auto 0.7 % (0-2); Eosinophils Absolute Auto 0.2 X10*3/uL (0.0-0.4); Hematocrit 32.5 % (42.0-52.0); Hemoglobin 11.2 g/dl (14.0-18.0); Imm Gran Abs Auto 0.02 X10*3/uL (0.00-0.03); Imm Gran Pct Auto 0.4 % (0.0-0.4); Lymphocytes Absolute Auto 0.7 X10*3/uL (1.2-4.9); Lymphocytes Percent Auto 13.2 % (20-40); Mean Corpuscular HGB Conc 34.5 g/dl (31.0-36.0); Mean Corpuscular Hemoglobin 31.5 pg (27.0-33.0); Mean Corpuscular Volume 91.3 fL (80.0-98.0); Mean Platelet Volume 11.3 fL (9.4-12.4); Monocytes Absolute Auto 0.5 X10*3/uL (0.1-1.2); Monocytes Percent Auto 8.5 % (2-11); Neutrophils Absolute Auto 4.1 x10*3/uL (2.0-8.3); Neutrophils Percent Auto 73.2 % (45-73); Platelet Count 150 X10*3/uL (160-400); Red Blood Count 3.56 X10*6/uL (4.60-5.80); Red Cell Distribution Width 12.7 % (11.0-16.0); White Blood Count 5.6 X10*3/uL (4.8-10.8)
[2024-07-03 12:41] LABS: Estimated Average Glucose 148 mg/dL; Hemoglobin A1C 144.1934 umol/L; Hemoglobin A1c % 6.8 % (<6.0); Total Hemoglobin (HGBA1C) 2862.6031 umol/L
[2024-07-03 13:13] LABS: B Type Natriuretic Peptide 198 pg/mL (<100)
[2024-07-03 13:50] LABS: Alanine Aminotransferase 26 U/L (0-40); Albumin Level 3.9 g/dL (3.5-5.0); Alkaline Phosphatase 60 U/L (39-117); Anion Gap 11 (12-20); Aspartate Amino Transferase 17 U/L (5-37); Bilirubin Total 0.4 mg/dL (0.0-1.0); Blood Urea Nitrogen 34 mg/dL (9-16); Calcium 9.5 mg/dL (8.4-10.2); Carbon Dioxide 24 mmol/L (22-29); Chloride 112 mmol/L (96-108); Estimated Glomerular Filt Rate 22; Glucose Random 184 mg/dL (60-115); Potassium 4.5 mmol/L (3.3-5.1); Sodium 142 mmol/L (135-145); Total Protein 6.5 g/dL (6.5-8.0)
== END 2024-07-03 11:32 | disposition home or self-care (01) ==
LOC: HO.LAB 11:31
PROVIDERS: PCP Internal Medicine; Visit Provider Internal Medicine
DX: I10 Essential (primary) hypertension (principal); E11.9 Type 2 diabetes mellitus without complications; R60.9 Edema, unspecified; N18.9 Chronic kidney disease, unspecified
CPT/HCPCS: 36415; 80053; 83036; 83880; 85025

== ENCOUNTER 2024-07-08 10:57 | Outpatient (REF) | payer MEDICAID, SELFPAY ==
--- NOTE | ~2024-07-08 | XR_ITS ---
EXAMINATION: XR HAND, RIGHT CLINICAL INFORMATION: Right hand injury COMPARISON: None available. TECHNIQUE: PA, lateral, and oblique views of the right hand. FINDINGS: There is no evidence of acute fracture or dislocation. No focal erosion. The bones essentially appear unremarkable. The liver arthritic changes are noted. Arterial calcifications are seen. A tiny linear radiopaque density is noted measuring 0.2 cm, projecting over the dorsal soft tissue of the thumb at the level of from proximal metadiaphysis of the proximal phalanx which could represent a foreign body, recommend clinical correlation. No soft tissue air is seen. XR/XR hand RT min 3V IMPRESSION: No evidence of acute fracture or dislocation in the right hand. A tiny linear radiopaque density projecting over the dorsal soft tissue of the thumb at the level of the proximal metadiaphysis of the proximal phalanx could represent a foreign body, recommend clinical correlation. Electronically signed by: Maria Isabel Mary MD 07/08/2024 05:48 PM [facility]
== END 2024-07-08 10:58 | disposition home or self-care (01) ==
LOC: HO.XRAY 10:57
PROVIDERS: PCP Internal Medicine; Visit Provider Internal Medicine
DX: S69.91XD Unspecified injury of right wrist, hand and finger(s), subsequent encounter (principal)
CPT/HCPCS: 73130

== ENCOUNTER 2025-01-11 15:47 | Outpatient (REF) | payer OTHER, SELFPAY ==
[2025-01-11 16:44] LABS: MANUAL DIFF FLAG NO
[2025-01-11 17:05] LABS: Estimated Average Glucose 140 mg/dL; Hemoglobin A1C 139.7873 umol/L; Hemoglobin A1c % 6.5 % (<6.0)
[2025-01-11 17:11] LABS: Basophils Percent Auto 0.5 % (0-2); Eosinophils Absolute Auto 0.3 X10*3/uL (0.0-0.4); Eosinophils Percent Auto 4.9 % (0-4); Hematocrit 33.4 % (42.0-52.0); Hemoglobin 11.2 g/dl (14.0-18.0); Imm Gran Abs Auto 0.02 X10*3/uL (0.00-0.03); Imm Gran Pct Auto 0.3 % (0.0-0.4); Lymphocytes Absolute Auto 1.1 X10*3/uL (1.2-4.9); Mean Corpuscular HGB Conc 33.5 g/dl (31.0-36.0); Mean Corpuscular Hemoglobin 30.1 pg (27.0-33.0); Mean Corpuscular Volume 89.8 fL (80.0-98.0); Mean Platelet Volume 11.3 fL (9.4-12.4); Monocytes Absolute Auto 0.6 X10*3/uL (0.1-1.2); Monocytes Percent Auto 9.7 % (2-11); Neutrophils Absolute Auto 4.1 x10*3/uL (2.0-8.3); Neutrophils Percent Auto 66.6 % (45-73); Platelet Count 152 X10*3/uL (160-400); Red Blood Count 3.72 X10*6/uL (4.60-5.80); Red Cell Distribution Width 12.8 % (11.0-16.0); White Blood Count 6.2 X10*3/uL (4.8-10.8)
[2025-01-11 17:29] LABS: Anion Gap 12 (12-20); Blood Urea Nitrogen 58 mg/dL (9-16); Calcium 9.5 mg/dL (8.4-10.2); Carbon Dioxide 24 mmol/L (22-29); Chloride 109 mmol/L (96-108); Cholesterol 129 mg/dL (<200); Estimated Glomerular Filt Rate 17; Glucose Random 105 mg/dL (60-115); HDL Cholesterol 39 mg/dL (>40); LDL Cholesterol Calculated 76 mg/dL (<100); Potassium 4.3 mmol/L (3.3-5.1); Sodium 141 mmol/L (135-145); Triglycerides 74 mg/dL (<150)
[2025-01-11 17:44] LABS: TSH reflex Free T4 0.73 uIU/mL (0.32-4.0)
[2025-01-11 17:45] LABS: Prostate Specific Antigen 1.22 ng/mL (<0.05-4.0)
== END 2025-01-11 15:48 | disposition home or self-care (01) ==
LOC: HO.LAB 15:47
PROVIDERS: PCP Internal Medicine; Visit Provider Physician Assistant
DX: I12.9 Hypertensive chronic kidney disease with stage 1 through stage 4 chronic kidney disease, or unspecified chronic kidney disease (principal); E11.22 Type 2 diabetes mellitus with diabetic chronic kidney disease; N18.4 Chronic kidney disease, stage 4 (severe); E78.5 Hyperlipidemia, unspecified; E11.319 Type 2 diabetes mellitus with unspecified diabetic retinopathy without macular edema; E11.42 Type 2 diabetes mellitus with diabetic polyneuropathy; Z79.899 Other long term (current) drug therapy
CPT/HCPCS: 36415; 80048; 80061; 83036; 84153; 84443; 85025; 99202

== ENCOUNTER 2025-01-11 15:47 | Outpatient (AMB) | payer OTHER, SELFPAY ==
--- OUTSIDE RECORDS SUMMARY | 2025-01-11 15:49 | XMS_ITS | Clinical Summary ---
Author Organization [facility] Address [address] [phone] Phone Care Team Providers Care Administrative Assistant Front Desk Name Role Phone William Puentes MD Primary Care Provider [phone] Allergies No known active allergies Medications Eliquis 2.5 MG tablet Take 2.5 mg by mouth in the morning and 2.5 mg in the evening. 04/04/2023 Active mirtazapine (REMERON) 15 MG tablet Take 15 mg by mouth at bed time 03/03/2023 Active insulin glargine (LANTUS) 100 UNIT/ML injection Inject under the skin every night Active insulin lispro protamine-insul in lispro (HumaLOG 50-50) (50-50) 100 UNIT/ML inj pen Inject under the skin 2 (two) times a day before meals Active Cholecalciferol (Vitamin D) 50 MCG (2000 UT) capsule Take 1 tablet by mouth 1 (one) time each day 90 capsule 3 10/29/2023 Active carvedilol (Coreg) 25 MG tablet Take 1 tablet (25 mg total) by mouth in the morning and 1 tablet (25 mg total) in the evening. Take with meals. 06/25/2024 Active hydrALAZINE 100 MG tablet Take 1 tablet (100 mg total) by mouth in the morning and 1 tablet (100 mg total) in the evening. 180 tablet 3 11/09/2024 Active amLODIPine (NORVASC) 10 MG tablet Take 1 tablet (10 mg total) by mouth 1 (one) time each day 11/09/2024 Active Active Problems Problem Noted Date Diagnosed Date Hypertensive chronic kidney disease stage 4 10/31 Anemia in chronic kidney disease 08/12/2024 Acute nontraumatic kidney injury 06/25/2024 Hypercholesterolemia 05/08/2023 05/08/2023 Impotence of organic origin 05/08/2023 09/0 01/2023 Migraine without aura 05/08/2023 05/08/2023 Memory impairment 05/08/2023 05/08/2023 Overview (05/08/2023): 11/19/2016: Ambulatory 24 Hr EEG: Normal. Insomnia 05/08/2023 05/08/2023 Mixed anxiety and depressive disorder 05/08/2023 05/08/2023 Overview (05/08/2023): Sees psych at [address]( RETAIL PRICING COORDINATOR)Has tolerated [id number] in the past. Paresthesia of hand 05/08/2023 05/08/2023 Overview (05/08/2023): Referred to hand and procurement specialist at [facility].10/29/14: EMG: There is nerve conduction study evidence consistent with a mild left median mononeuropathy at the wrist (carpal tunnel syndrome) with nerve conduction study evidence of focal sensory and motor fiber demyelination. EMG of the left APB is normal. These findings are superimposed upon a mild sensory polyneuropathy symmetrically affecting the upper extremities consistent with, but not diagnostic for, diabetic polyneuropathy. There is EMG evidence consistent with a mild chronic left C6 radiculopathy. No nerve conduction study evidence of a left ulnar neuropathy at the wrist or elbow (cubital tunnel syndrome) or left superficial radial neuropathy. Type 2 diabetes mellitus 05/08/2023 023 Lzqdq-Aayludokj-Fziyt pattern 05/08/2023 Overview (05/08/2023): EP study on 01/22/2011 failed to show the accessory pathway which was noted in 1986. Chronic kidney disease, stage 4 (severe) 023 Proteinuria 05/08/2023 Atrial fibrillation 04/26/2014 05/08/2023 Overview (05/08/2023): Scanned report 11-20-2010 Dermatophytosis of nail 04/26/2014 05/08/20 23 Retinopathy due to diabetes mellitus 04/26/2014 05/08/2023 Overview (05/08/2023): Dr Pimentel note 03-03-2013 Dr. Pimentel-03/03/2013. Nuclear sclerosis 04/26/2014 05/08/2023 Overview (05/08/2023): Dr Pimentel note 03-03-2013 Erectile dysfunction 03/18/2013 05/08/2023 Skin tag 06/25/2012 05/08/2023 Cervical radiculitis 07/12/2009 05/08/2023 Hypertensive disorder 09/10/2008 05/08/2023 Resolved Problems Problem Noted Date Diagnosed Date Resolved Date Stage 3b chronic kidney disease 06/25/2024 11/09/2024 Encounters Date Type Department Care Team Description 11/10/2024 Orders Only [facility] [address] [phone] Severo Tee MD Chronic kidney disease, stage 4 (severe) (HCC); Stage 3b chronic kidney disease (HCC) 11/09/2024 4:15 PM EDT Office Visit [facility] [address] [phone] Severo Tee MD Chronic kidney disease, stage 4 (severe) (HCC) (Primary Dx); Stage 3b chronic kidney disease (HCC); Type 2 diabetes mellitus with diabetic chronic kidney disease (HCC); Other proteinuria; Hypercholesterolemia, not otherwise specified 10/31/2024 Orders Only [facility] [address] [phone] Karoline Heart ARNP Chronic kidney disease, stage 4 (severe) (HCC); Hypertensive disorder; Anemia in chronic kidney disease from Last 3 Months Family History Medical History Relation Comments Cancer Father Diabetes Father Diabetes Mother Heart disease Mother Kidney disease Mother Relation Status Comments Father Mother Social History Tobacco Use Types Packs/Day Years Used Date Smoking Tobacco: Never Smokeless Tobacco: Never Alcohol Use Standard Drinks/Week Comments Not Currently 0 (1 standard drink = 0.6 oz pur e alcohol) Sex and Gender Information Value Date Recorded Sex Assigned at Not on file Legal Sex Male 1:39 PM EDT Gender Identity Male 10/27/2023 9:48 PM EST Sexual Orientation Straight 10/27/2023 9: 48 PM EST Last Filed Vital Signs Vital Sign Reading Time Taken Comments Blood Pressure 140/74 11/09/2024 2:25 PM EDT Pulse 65 11/09/2024 2:25 PM EDT Temperature - - Respiratory Rate - - Oxygen Saturation 98% 10/29/2023 4:11 PM EST Inhaled Oxygen Concentration - - Weight 71.8 kg (158 lb 6.4 oz) 11/09/2024 2:25 P M EDT Height - - Body Mass Index - - Plan of Treatment Upcoming Encounters Date Type Department Care Team (Late st Contact Info) Description 02/09/2025 Orders Only [facility] [address] [phone] Severo Tee MD [address] [phone] Chronic kidney disease, stage 4 (severe) (HCC); Stage 3b chronic kidney disease (HCC); Type 2 diabetes mellitus with diabetic chronic kidney disease (HCC) 03/11/2025 1:30 PM EDT Office Visit [facility] [address] [phone] Karoline Heart ARNP [address] [phone] Health Maintenance Due Date Last Done Comments Colorectal Cancer Screening: Annual FOBT 2010 Colorectal Cancer Screening: Colonoscopy 2010 Colorectal Cancer Screening: Sigmoidoscopy 2010 Pneumococcal Vaccine: 50+ Years (3 of 3 - PCV) 07/02/2015 07/02/2014, 08/23/2010 Diabetes: Ophthalmology Exam 01/07/2023 03/03/2013, 06/24/2009 Diabetes: Pedal Pulse Checked 01/07/2023 Diabetes: Sensory Foot Exam 01/07/2023 Diabetes: Visual Foot Exam 01/07/2023 Diabetes: Hemoglobin A1C 12/31/2023 10/02/2023, 09/0 01/2023 Influenza Vaccine (Season Ended) 2025 06/16/2018, 06/16/2016, 04/29/2014, Additional history exists Pneumococcal Vaccine: Peds (0 to 5 Years) and At-Risk Patients (6 to 49 Years) Discontinued 07/02/2014, 08/23/2010 Hepatitis B Vaccine Aged Out No longe r eligible based on patient's age to complete this topic Procedures Procedure Name Priority Date/Time Associated Diagnosis Comments EXT RESULT ENTRY Routine 10/02/2023 from Last 3 Months or Most Recently Relevant to Health Maintenance Results * (ABNORMAL) EXT RESULT ENTRY (10/02/2023) Sodium 140 137 - 147 Potassium 4.2 3.4 - 5.5 Chloride 103.0 99.0 - 108.0 Anion Gap 9 <=30 MMOL/L Glucose 372(A) 60 - 200 BUN 44(A) 4 - 21 mg/dL Creatinine 2.20(A) 0.60 - 1.30 mg/dL Calcium 9.2 8.7 - 10.7 mg/dL Hemoglobin A1C 9.1(A) 4.0 - 6.0 10/02/2023 us Historical Provider LAB BLOOD ORDERABLES Radha l Result from Last 3 Months or Most Recently Relevant to Health Maintenance Insurance Medicaid [place] Care Teams Administrative Assistant Front Desk Relationship Specialty Start Date End Date William Puentes MD [id number] [place], [place] PCP - General Internal Medicine 12/27/22
--- OUTSIDE RECORDS SUMMARY | 2025-01-11 15:49 | XMS_ITS | Encounter Summary ---
Author Organization [facility] Address [address] [phone] Phone Care Team Providers Care Sales Enablement Specialist Name Role Phone William Puentes MD Primary Care Provider [phone] Encounter Details Date Type Department Care Team (Late st Contact Info) Description 09/17/2024 Office Communication [facility] [address] [phone] Karoline Heart ARNP [address] [phone] Social History Tobacco Use Types Packs/Day Years [...] Orientation Straight 10/27/2023 9: 48 PM EST documented as of this encounter Plan of Treatment Upcoming Encounters Date Type Department Care Team (Late st Contact Info) Description 02/09/2025 Orders Only [facility] [address] [phone] Severo Tee MD [address] [phone] Chronic kidney disease, stage 4 (severe) (HCC); Stage 3b chronic kidney disease (HCC); Type 2 diabetes mellitus with diabetic chronic kidney disease (HCC) 03/11/2025 1:30 PM EDT Office Visit [facility] [address] [phone] Karoline Heart ARNP [address] [phone] documented as of this encounter Visit Diagnoses Not on filedocumented in this encounter Care Teams Sales Enablement Specialist Relationship Specialty Start Date End Date William Puentes MD [address] [place], [place] PCP - General Internal Medicine 12/27/22 documented as of this encounter
--- NOTE | 2025-01-11 15:52 | A.OFFPC_ITS ---
Vital Signs 01/11/25 16:02 Height 5 ft 7 in Weight 73.936 kg BMI 25.5 BP 172/80 H Respiration 16 Pulse 64 Pulse Source Pulse Oximeter Temp 97.5 F Temp Source Temporal Artery Scan Pulse Oximetry (%) 96 Oxygen Delivery Method Room Air Intake Visit Reasons: Routine - see comments Manager Inventory Management Required: No Accompanied by: Daughter Allergies No Known Allergies Allergy (Verified 01/11/25 16:03) Medication List - Last Reconciled 01/12/25 by GRISEL Calderon amlodipine 5 mg PO DAILY apixaban (Eliquis) 5 mg PO BID atorvastatin 40 mg PO BEDTIME carvedilol 12.5 mg PO BID cholecalciferol (vitamin D3) 50 mcg PO DAILY flash glucose sensor (FreeStyle Andre 14 Day Sensor kit) As directed glipizide ER 5 mg PO BID hydralazine 75 mg PO BID mirtazapine 15 mg PO QPM pen needle, diabetic (BD Ultra-Fine Short Pen Needle) As directed Tobacco use date assessed: 01/11/25 Dental Screening Dental Screen Date: 01/11/25 Did you have a dental visit in the last 12 months?: No Did you have a dental problem in the last 6 months where you did not have access to dental care?: No Was dental information given to patient?: Patient has dentist (Does not have a dentist) HPI HPI Comments History of Present Illness Details 64-year-old male with history of CKD sta ge 4, nonocclusive thrombus of the left lower extremity, hypertension, hyperlipidemia, insulin-dependent type 2 diabetes presenting to the office today for routine follow-up and to establish care with his daughter, aurora. He has been following with Dr. Tee for management of his CKD. Reports he does still make urine but conversations have been had about dialysis in the future. He does have diabetic polyneuropathy but is not overly bothered by the symptoms and is not interested in taking medications for this. He does also have diabetes associated cataracts and retinopathy for which he follows with Ophthalmology and will be undergoing surgery and continues with injections for the retinopathy. He states his glucose levels have been controlled so he has not been using his Lantus or sliding scale insulin. He does have freestyle Andre and reports glucose levels have been controlled. [facility] Medical History (Updated 01/12/25 @ 17:55 by GRISEL Calderon) Diabetic polyneuropathy Diabetic retinopathy Controlled diabetes mellitus with diabetic cataract Depression Non-occlusive thrombus CKD (chronic kidney disease), stage IV HTN (hypertension) HLD (hyperlipidemia) Kidney disease Diabetic acidosis, type I High cholesterol Family History (Updated 01/11/25 @ 16:11 by FADUMO Langford) Mother Diabetes A-fib Kidney failure Father Diabetes Heart problem Social History (Updated 01/11/25 @ 16:11 by FADUMO Langford) Housing: House Alcohol intake: current Alcohol intake frequency: holidays/special occasions only Patient Tobacco Use Status: Never used Tobacco service: No Current occupational status: employed 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 1. Little interest or pleasure in doing things: several days 2. Feeling down, depressed, or hopeless: several days 3. Trouble falling or staying asleep, or sleeping too much: not at all 4. Feeling tired or having little energy: several days 5. Poor appetite or overeating: not at all 6. Feeling bad about yourself - or that you are a failure or have let yourself or your family down: several days 7. Trouble concentrating on things, such as reading the newspaper or watching television: not at all 8. Moving or speaking so slowly that other people could have noticed. Or the opposite - being so fidgety or restless that you have been moving around a lot more than usual: not at all 9. Thoughts that you would be better off or of hurting yourself in some way: not at all Total score: 4 Source: Developed by Drs. Garrison Slaughter, Lizzy Farah, Jaison Fletcher and colleagues, with an educational alisha from [employer]. Thrive Questionnaire Date Thrive assessed: 01/11/25 I am a: Patient What is your living situation today?: I have a steady place to live Within the past 12 months, did the food you bought not last and you didn't have the money to get more?: Never true Within the past 12 months, did you worry whether your food would run out before you got money to buy more?: Never true Do you have trouble paying for medicines?: No Do you have trouble getting transportation to medical appointments?: No Do you have trouble paying your heating and electricity bill?: No Do you have trouble taking care of your child, family member or friend?: No Do you have trouble with day-to-day activities such as bathing, preparing meals, shopping, managing finances, etc.?: No Are you currently unemployed and looking for a job?: No Are you interested in more education?: No Please select the resources that you would like help with: None THRIVE Score: 0 AUDIT C Alcohol Use Questionnaire (AUDIT-C) 1. How often do you have a drink containing alcohol?: 2-4 times a month Total Score: 2 BHARGAVI-7 AMB Questionnaire BHARGAVI-7 Date BHARGAVI - 7 assessed: 01/11/25 Feeling nervous, anxious, or on edge: 0 = Not at all Not being able to stop or control worryin = Not at all Worrying too much about different things: 0 = Not at all Trouble relaxin = Not at all Being so restless that it is hard to sit still: 0 = Not at all Becoming easily annoyed or irritable: 0 = Not at all Feeling afraid as if something awful might happen: 0 = Not at all Total BHARGAVI-7 score (0-4 normal; 5-9 mild; 10-14 moderate; 15-21 severe): 0 Source: Developed by Drs. Garrison Slaughter, Lizzy Farah, Jaison Fletcher and colleagues, with an educational alisha from [employer]. Review of Systems Const All systems reviewed & are unremarkable except as noted in HPI and below Physical exam (Primary Care) Vital Signs: Last Vital Signs Temp 97.5 F 01/11/25 16:02 Pulse 64 01/11/25 16:02 Resp 16 01/11/25 16:02 BP 172/80 H 01/11/25 16:02 Pulse Ox 96 01/11/25 16:02 Oxygen Delivery Method Room Air 01/11/25 16:02 BMI result Body Mass Index 25.5 Tobacco/Smoking Status: Tobacco use Status Tobacco use date assessed 01/11/25 01/11/25 15:54 Patient Tobacco Use Status Never used Tobacco 01/11/25 16:11 PHQ-9: PHQ-9 Score PHQ-9: Total score 4 01/12/25 17:58 Thrive Assessment: Date of Thrive Assessment Date Thrive assessed 01/11/25 01/11/25 15:54 Const Other: Constitutional - Awake and Alert, No apparent distress Eyes - PERRLA, EOMI Cardiovascular - S1S2, RRR, No edema Respiratory - Normal lung expansion, Normal respiratory effort, No respiratory distress, CTA bilaterally Extremities - no calf tenderness bilaterally, no swelling Skin - Warm/Dry Neurological - Alert & oriented x3 Psychological - Appropriate affect Coding Level of Care Code New Pt Level 4 (02915) Complex EM visit Add On G2211 Diagnoses HLD (hyperlipidemia) E78.5 Diabetes mellitus E11.9 HTN (hypertension) I10 CKD stage 4 due to type 2 diabetes mellitus E11.22; N18.4 Diabetic retinopathy E11.319 Diabetic polyneuropathy E11.42 Assessment & Plan Assessment & Plan (1) HLD (hyperlipidemia): Code(s): E78.5 - Hyperlipidemia, unspecified Category: Medical Plan: Lipid panel ordered. Continue atorvastatin 40 mg daily. (2) Diabetes mellitus: Code(s): E11.9 - Type 2 diabetes mellitus without complications Category: Medical Plan: Hemoglobin A1c ordered. If controlled, we will discontinue Lantus and sliding scale insulin. Continue glipizide and diabetic diet. Continue following with Ophthalmology for management of cataracts and retinopathy. (3) HTN (hypertension): Code(s): I10 - Essential (primary) hypertension Category: Medical Plan: Blood pressure improved on recheck. Continue hydralazine 75 mg twice daily, carvedilol, amlodipine. Follow-up with nephrology as scheduled. Continue low- sodium diet. (4) CKD stage 4 due to type 2 diabetes mellitus: Code(s): E11.22 - Type 2 diabetes mellitus with diabetic chronic kidney disease; N18.4 - Chronic kidney disease, stage 4 (severe) Category: Medical Plan: BNP ordered. Follow-up with nephrology as scheduled. Avoid nephrotoxins (5) Diabetic retinopathy: Code(s): E11.319 - Type 2 diabetes mellitus with unspecified diabetic retinopathy without macular edema Category: Medical Plan: Stable. Continue following with Ophthalmology (6) Diabetic polyneuropathy: Code(s): E11.42 - Type 2 diabetes mellitus with diabetic polyneuropathy Category: Medical Plan: Reasonably controlled at this time. Not interested in medication Plan Follow up in 3 months. Follow up with nephrology. Referred to Podiatry for diabetic foot exam and hypertrophic toenails Orders: Orders Complete Blood Count Auto Diff 01/11/25 E11.9 - Type 2 diabetes mellitus without complications, E78.5 - Hyperlipidemia, unspecified, I10 - Essential (primary) hypertension, Z12.5 - Encounter for screening for malignant neoplasm of prostate Hemoglobin A1c 01/11/25 E11.9 - Type 2 diabetes mellitus without complications, E78.5 - Hyperlipidemia, unspecified, I10 - Essential (primary) hypertension, Z12.5 - Encounter for screening for malignant neoplasm of prostate TSH reflex Free T4 01/11/25 E11.9 - Type 2 diabetes mellitus without complications, E78.5 - Hyperlipidemia, unspecified, I10 - Essential (primary) hypertension, Z12.5 - Encounter for screening for malignant neoplasm of prostate Basic Metabolic Panel 01/11/25 E11.9 - Type 2 diabetes mellitus without complications, E78.5 - Hyperlipidemia, unspecified, I10 - Essential (primary) hypertension, Z12.5 - Encounter for screening for malignant neoplasm of prostate Lipid Panel 01/11/25 E11.9 - Type 2 diabetes mellitus without complications, E78.5 - Hyperlipidemia, unspecified, I10 - Essential (primary) hypertension, Z12.5 - Encounter for screening for malignant neoplasm of prostate Prostate Specific Antigen 01/11/25 E11.9 - Type 2 diabetes mellitus without complications, E78.5 - Hyperlipidemia, unspecified, I10 - Essential (primary) hypertension, Z12.5 - Encounter for screening for malignant neoplasm of prostate US venous duplex LE LT 01/11/25 I82.90 - Acute embolism and thrombosis of unspecified vein Referrals Gastroenterology Referral E11.22 - Type 2 diabetes mellitus with diabetic chronic kidney disease, N18.4 - Chronic kidney disease, stage 4 (severe), Z13.1 - Encounter for screening for diabetes mellitus Podiatry Referral E11.9 - Type 2 diabetes mellitus without complications, L60.2 - Onychogryphosis Medications: Discontinued insulin lispro Discontinued Reason: Doctor's Order INJECT PER SLIDING SCALE BEFORE MEALS 100-150:4 UNITS 151-200:6 UNITS 201-250:8 15 mL 3RF
[2025-01-11 16:02] VITALS: BP 172/80; PULSE 64; RESP 16; TEMP 36.4; O2SAT 96; BMI 25.5
== END 2025-01-11 16:29 | disposition home or self-care (01) ==
LOC: HO.HMCHD 15:47
PROVIDERS: PCP Internal Medicine; Visit Provider Physician Assistant
DX: E78.5 Hyperlipidemia, unspecified (principal); E11.22 Type 2 diabetes mellitus with diabetic chronic kidney disease; I12.9 Hypertensive chronic kidney disease with stage 1 through stage 4 chronic kidney disease, or unspecified chronic kidney disease; N18.4 Chronic kidney disease, stage 4 (severe); E11.319 Type 2 diabetes mellitus with unspecified diabetic retinopathy without macular edema; E11.42 Type 2 diabetes mellitus with diabetic polyneuropathy

== ENCOUNTER 2025-03-09 14:46 | Outpatient (REF) | payer OTHER, SELFPAY ==
--- NOTE | ~2025-03-09 | US_ITS ---
EXAMINATION: US TRIPLEX LOWER EXTREMITY, LEFT CLINICAL INFORMATION: History of greater saphenous vein thrombus. COMPARISON: None available. TECHNIQUE: Color-flow triplex imaging with spectral analysis and compression Doppler were performed on the left lower extremity. FINDINGS: Respiratory variation, normal compression and augmented flow are noted throughout the left lower extremity. The visualized common femoral vein, superficial femoral vein, profunda femoral vein, popliteal vein and midcalf peroneal and posterior tibial venous segments show no evidence of deep venous thrombosis. There is superficial thrombus present in the left superficial saphenous vein. There is no Griggs's cyst. There is subcutaneous calf edema present. There are reactive appearing lymph nodes in the left groin and left popliteal fossa. US/US venous duplex LE LT IMPRESSION: 1. No evidence of deep venous thrombosis involving the left lower extremity. 2. Superficial Thrombus present in the left superficial saphenous vein. 3. There is subcutaneous calf edema present. 4. There are reactive appearing groin and left popliteal fossa lymph nodes present. Electronically signed by: Danial Castillo MD 03/09/2025 03:24 PM EDT
--- OUTSIDE RECORDS SUMMARY | 2025-03-09 15:29 | XMS_ITS | Clinical Summary ---
Author Organization [facility] Address [address] [address] Phone Care Team Providers Care Accordion Tuner Name Role Phone William Puentes MD Primary Care Provider [phone] Allergies No known active allergies Medications Eliquis [...] (05/08/2023): Sees psych at [address]( [employer])Has tolerated [id number] in the past. Paresthesia of hand 05/08/2023 05/08/2023 Overview (05/08/2023): Referred to hand and merchandising specialist at [facility].10/29/14: EMG: There is nerve conduction study [...] neuropathy. Type 2 diabetes mellitus 05/08/2023 023 Uimsb-Zxcppwzcr-Honhl pattern 05/08/2023 Overview (05/08/2023): EP study on [...] Encounters Date Type Department Care Team Description 02/09/2025 Orders Only [facility] [address] [address] Severo Tee MD Chronic kidney disease, stage 4 (severe) (HCC); Stage 3b chronic kidney disease (HCC); Type 2 diabetes mellitus with diabetic chronic kidney disease (HCC) from Last 3 Months Family History Medical [...] Care Team (Late st Contact Info) Description 03/31/2025 3:30 PM EDT Office Visit [facility] [address] [address] Karoline Heart ARNP [address] [address] Health Maintenance Due Date Last [...] A1C 12/31/2023 10/02/2023, 09/0 01/2023 Influenza Vaccine (#1) 2025 8, 06/16/2016, 04/29/2014, Additional history exists Pneumococcal Vaccine: Peds (0 to 5 Years) and At-Risk Patients (6 to 49 Years) Discontinued 07/02/2014, 08/23/2010 Hepatitis B Vaccine Aged Out No longe r eligible based on patient's age to complete this topic Procedures Procedure Name Priority Date/Time Associated Diagnosis Comments PTH, INTACT Routine 03/01/2025 1:03 PM EDT MAGNESIUM Routine 03/01/2025 1:03 PM EDT URINE ALBUMIN / CREATININE RATIO Routine 03/01/2025 1:03 PM EDT PROTEIN / CREATININE RATIO, URINE Routine 03/01/2025 1:03 PM EDT CBC Routine 03/01/2025 1:03 PM EDT RENAL FUNCTION PANEL Routine 03/01/2025 1:03 PM EDT EXT RESULT ENTRY Routine 10/02/2023 from Last 3 Months or Most Recently Relevant to Health Maintenance Results * (ABNORMAL) Protein, Total, Random Urine w/Creatinine (Protein/Creat Ratio) (03/01/2025 1:03 PM EDT) Creatinine, Ur 111.9 Not Estab. mg/dL [facility] Protein, Ur 113.9 Not Estab. mg/dL [facility] Urine Protein/Creati nine Ratio 1,018(H) 0 - 200 mg/g creat [facility] 03/01/2025 1:03 PM EDT 03/01/2025 Karoline Sly [facility] LAB URINE ORDERABLES Final Result [facility] [address] [place] [address] * (ABNORMAL) Urine Albumin / Creatinine Ratio (03/01/2025 1:03 PM EDT) Albumin, Urine 592.3 Not Estab. ug/mL [facility] Comment: Results confirmed on dilution. Albumin/Creatin ine Ratio 529(H) 0 - 29 mg/g creat [facility] Comment: Normal: 0 - 29 Moderately increased: 30 - 300 Severely increased: >300 03/01/2025 1:03 PM EDT 03[facility]01[facility]20[facility] URINE ORDERABLES Final Result [facility] [address] [place] [address] * (ABNORMAL) CBC (03/01/2025 1:03 PM EDT) WBC 5.5 3.4 - 10.8 x10E3/uL [facility] RBC 3.38(L) 4.14 - 5.80 x10E6/uL [facility] Hemoglobin 10.5(L) 13.0 - 17.7 g/dL [facility] Hematocrit 31.2(L) 37.5 - 51.0 % [facility] MCV 92 79 - 97 fL [facility] MCH 31.1 26.6 - 33.0 pg [facility] MCHC 33.7 31.5 - 35.7 g/dL [facility] RDW 12.7 11.6 - 15.4 % [facility] Platelets 114(L) 150 - 450 x10E3/uL [facility] 03/01/2025 1:03 PM EDT 03/01/2025 Karoline [facility] LAB BLOOD ORDERABLES Final Result [facility] [address] [place] [address] * PTH, Intact (03/01/2025 1:03 PM EDT) PTH 53 15 - 65 pg/mL [facility] 03/01/2025 1:03 PM EDT 03/01/2025 Karoline [facility] LAB BLOOD ORDERABLES Final Result Performing Organization Address City/[facility]/ZIP Co de Phone Number [facility] [address] [place] [address] * (ABNORMAL) Magnesium (03/01/2025 1:03 PM EDT) Magnesium 2.4(H) 1.6 - 2.3 mg/dL [facility] 03/01/2025 1:03 PM EDT 03/01/2025 Karoline [facility] LAB BLOOD ORDERABLES Final Result Performing Organization Address [facility] de Phone Number [facility] [address] [place] [address] * (ABNORMAL) Renal Function Panel (03/01/2025 1:03 PM EDT) Glucose 83 70 - 99 mg/dL [facility] BUN 60(H) 8 - 27 mg/dL [facility] Creatinine 4.04(H) 0.76 - 1.27 mg/dL [facility] eGFR CKD-EPI CR 2020 16(L) >59 mL/min/1.7 3 [facility] BUN/Creatinine Ratio 15 10 - 24 [facility] Sodium 141 134 - 144 mmol/L [facility] Potassium 4.8 3.5 - 5.2 mmol/L [facility] Chloride 107(H) 96 - 106 mmol/L [facility] Bicarbonate (CO2) 16(L) 20 - 29 mmol/L [facility] Calcium 8.8 8.6 - 10.2 mg/dL [facility] Albumin 4.3 3.9 - 4.9 g/dL [facility] Phosphorus 4.8(H) 2.8 - 4.1 mg/dL [facility] 03/01/2025 1:03 PM EDT 03/01/2025 Karoline Sly [facility] LAB BLOOD ORDERABLES Final Result [facility] [address] [place] [address] * (ABNORMAL) EXT RESULT ENTRY (10/02/2023) Sodium 140 137 - 147 Potassium 4.2 3.4 - 5.5 Chloride 103.0 99.0 - 108.0 Anion Gap 9 <=30 MMOL/L Glucose 372(A) 60 - 200 BUN 44(A) 4 - 21 mg/dL Creatinine 2.20(A) 0.60 - 1.30 mg/dL Calcium 9.2 8.7 - 10.7 mg/dL Hemoglobin A1C 9.1(A) 4.0 - 6.0 10/02/2023 Historical Provider LAB BLOOD ORDERABLES Radha l Result from Last 3 Months or Most Recently Relevant to Health Maintenance Insurance [facility] Medicaid Care Teams Accordion Tuner Relationship Specialty Start Date End Date William Puentes MD [address] [place] PCP - General Internal Medicine 12/27/22
--- OUTSIDE RECORDS SUMMARY | 2025-03-09 15:29 | XMS_ITS | Clinical Summary ---
Author Organization 175 [facility] Address [address] [place] [address] Phone Care Team Providers Care Tax Consultant Name Role Phone Delvin Sweeney MD Primary Care Provider [phone] Social History Tobacco Use Types Packs/Day Years Used Date Smoking Tobacco: Never Assessed Sex and Gender Information Value Date Recorded Sex Assigned at Not on file Legal Sex Male 8:30 AM EST Gender Identity Not on file Sexual Orientation Not on file Plan of Treatment Upcoming Encounters Date Type Department Care Team (Late st Contact Info) Description 04/12/2025 1:00 PM EDT Office Visit Orthopedic Surgery - [place] [address] [address] Lyndon Baugh, DELFIN [address] [address] Health Maintenance Due Date Last Done Comments Diabetes: Annual GFR (Glomerular Filtration Rate) 1961 COVID-19 Vaccine (#1) 1966 Diabetes: Annual Foot Exam 1971 Diabetes: Annual Retina Eye Exam 1971 Zoster Vaccines (1 of 2) 1980 Pneumococcal Vaccine: 50+ Years (2 of 2 - PCV) 07/02/2015 07/02/2014 Pneumococcal Vaccine: Pediatrics (0 to 5 Years) and At-Risk Patients (6 to 49 Years) (2 of 2 - PCV) 07/02/2015 07/02/2014 RSV Immunization Adult Patients (1 - Risk 60-74 years 1-dose series) 2021 DTaP,Tdap,and Td Vaccines (3 - Td or Tdap) 03/18/2023 03/18/2013, 07/03/2008 Cholesterol Screening (Lipid Panel) 01/15/2025 Colorectal Cancer Screening: Colonoscopy 01/15/2025 Depression Screening 01/15/2025 Diabetes: Annual Urine Albumin-Creatinine Ratio (uACR) 01/15/2025 Diabetes: Blood Sugar Control Test (HGBA1C) 01/15/2025 HIV Screening 01/15/2025 Hepatitis C Screening 01/15/2025 Hypertension/CHF/CAD Annual BMP Blood Test 01/15/2025 Social Influencers of Health Screening 01/15/2025 Influenza Vaccine (#1) 2025 4, 08/12/2013, 05/15/2011, Additional history exists HIB Vaccines Aged Out No longer eligi ble based on patient's age to complete this topic HPV Vaccines Aged Out No longer eligi ble based on patient's age to complete this topic Hepatitis A Vaccines Aged Out No long er eligible based on patient's age to complete this topic Hepatitis B Vaccines Aged Out No long er eligible based on patient's age to complete this topic IPV Vaccines Aged Out No longer eligi ble based on patient's age to complete this topic MMR Vaccines Aged Out No longer eligi ble based on patient's age to complete this topic Meningococcal ACWY Vaccine Aged Out N o longer eligible based on patient's age to complete this topic Meningococcal B Vaccine Aged Out No l onger eligible based on patient's age to complete this topic RSV Immunization Patients Under 20 months Aged Out No longer eligible based on patient's age to complete this topic Varicella Vaccines Aged Out No longer eligible based on patient's age to complete this topic Insurance MEDICAID - [place] Care Teams Tax Consultant Relationship Specialty Start Date End Date Delvin Sweeney MD [facility] [address] [place] [address] PCP - General Internal Medicine 01/15/25
== END 2025-03-09 14:47 | disposition home or self-care (01) ==
LOC: HO.US 14:46
PROVIDERS: PCP Internal Medicine; Visit Provider Physician Assistant
DX: R60.0 Localized edema (principal); I82.812 Embolism and thrombosis of superficial veins of left lower extremity
CPT/HCPCS: 93971

== ENCOUNTER → 2025-03-09 14:47 | Outpatient (BNV) | payer OTHER, SELFPAY | PROVIDERS: PCP Internal Medicine; Visit Provider Radiology Diagnostic Radiology | DX: I82.812 Embolism and thrombosis of superficial veins of left lower extremity (principal); R22.42 Localized swelling, mass and lump, left lower limb | CPT/HCPCS: 93971 ==

== ENCOUNTER 2025-05-07 15:28 | Outpatient (AMB) | payer OTHER, SELFPAY ==
--- OUTSIDE RECORDS SUMMARY | 2025-05-07 15:33 | XMS_ITS | Clinical Summary ---
Author Organization 175 [facility] Address [address] [place] [address] Phone Care Team Providers Care Chief Controller Station Name Role Phone Delvin Sweeney MD Primary Care Provider [phone] Allergies No known active allergies Encounters Date Type Department Care Team Description 04/12/2025 1:00 PM EDT Office Visit Orthopedic Surgery [facility] [address] [phone] Lyndon Baugh DPM Poorly controlled type 2 diabetes mellitus with neuropathy (CMS/HCC V24, CMS/HCC V28) (Primary Dx); Arthritis of both feet; Pain in toes of both feet; Hammertoes of both feet; Dermatophytosis, nail from Last 3 Months Social History Tobacco Use Types Packs/Day Years Used Date Smoking Tobacco: Never Assessed Sex and Gender Information Value Date Recorded Sex Assigned at Not on file Legal Sex Male 8:30 AM EST Gender Identity Not on file Sexual Orientation Not on file Plan of Treatment Upcoming Encounters Date Type Department Care Team ([facility] st Contact Info) Description 06/14/2025 3:00 PM EDT Office Visit Orthopedic Surgery [facility] [address] [phone] Lyndon Baugh DPM [address] [address] Health Maintenance Due Date Last Done Comments Diabetes: Annual GFR (Glomerular Filtration Rate) 1961 Diabetes: Annual Foot Exam 1971 Diabetes: Annual Retina Eye Exam 1971 Zoster Vaccines (1 of 2) 2011 Pneumococcal Vaccine: 50+ Years (2 of 2 - PCV) 07/02/2015 07/02/2014 RSV Immunization Adult Patients (1 - Risk 60-74 years 1-dose series) 2021 DTaP,Tdap,and Td Vaccines (3 - Td or Tdap) 03/18/2023 03/18/2013, 07/03/2008 Depression Screening 09/02/2024 Cholesterol Screening (Lipid Panel) 01/15/2025 Colorectal Cancer Screening: Colonoscopy 01/15/2025 Diabetes: Annual Urine Albumin-Creatinine Ratio (uACR) 01/15/2025 Diabetes: Blood Sugar Control Test (HGBA1C) 01/15/2025 HIV Screening 01/15/2025 Hepatitis C Screening 01/15/2025 Hypertension/CHF/CAD Annual BMP Blood Test 01/15/2025 Social Influencers of Health Screening 01/15/2025 COVID-19 Vaccine ( season) 2025 08/30/2021, 12/30/2020, 11/24/2020 Influenza Vaccine (#1) 2025 4, 08/12/2013, 05/15/2011, [...] to complete this topic Insurance MEDICAID - [place] Care Teams Chief Controller Station Relationship Specialty Start Date End Date Delvin Sweeney MD [facility] [address] [place] [address] [address] [place] [address] PCP - General Internal Medicine 01/15/25
--- OUTSIDE RECORDS SUMMARY | 2025-05-07 15:33 | XMS_ITS | Encounter Summary ---
Author Organization [facility] Address [address] [address] Phone Care Team Providers Care Food Sampler Name Role Phone William Puentes MD Primary Care Provider [phone] Encounter Details Date Type Department Care Team (Late Contact Info) Description 09/17/2024 Office Communication [facility] [address] [place] [phone] Karoline Heart ARNP [address] [address] Social History Tobacco Use Types [...] Care Team (Late st Contact Info) Description 07/19/2025 3:45 PM EST Office Visit [facility] [address] [phone] Severo Tee MD [address] [address] documented as of this encounter Visit Diagnoses Not on filedocumented in this encounter Care Teams Food Sampler Relationship Specialty Start Date End Date William Puentes MD [address] [place] PCP - General Internal Medicine 12/27/22 documented as of this encounter
--- OUTSIDE RECORDS SUMMARY | 2025-05-07 15:33 | XMS_ITS | Clinical Summary ---
Author Organization [facility] Address [address] [address] Phone Care Team Providers Care Head Turbine Operator Name Role Phone William Puentes MD Primary Care Provider [phone] Allergies No known active allergies Medications mirtazapine (REMERON) 15 MG tablet Take 15 mg by mouth at bed time 03/03/2023 Active Cholecalciferol (Vitamin D) 50 MCG (1999) capsule Take 1 tablet by mouth 1 [...] 1 (one) time each day 11/09/2024 Active aspirin (ST MIGUELANGEL) 81 MG EC tablet Take 81 mg by mouth 1 (one) time each day Active glipiZIDE (GLUCOTROL XL) 5 MG 24 hr tablet Take 5 mg by mouth 1 (one) time each day Do not crush, chew, or split. Active furosemide (LASIX) 20 MG tabletIndicatio ns:Chronic kidney disease, stage 4 (severe) (HCC),Bilateral lower leg edema Take 1 tablet (20 mg total) by mouth 3 (three) times a week 12 tablet 5 03/31/2025 Active Active Problems Problem Noted Date Diagnosed [...] (05/08/2023): Sees psych at [address]( CARDIOVASCULAR OPERATING ROOM NURSE)Has tolerated [id number] in the past. Paresthesia of hand 05/08/2023 05/08/2023 Overview (05/08/2023): Referred to hand and diagnostic sales specialist at [facility].10/29/14: EMG: There is nerve conduction study evidence [...] neuropathy. Type 2 diabetes mellitus 05/08/2023 023 Fklgd-[id number]-Jllio pattern 05/08/2023 Overview (05/08/2023): EP study on [...] Encounters Date Type Department Care Team Description 04/06/2025 Office Communication [facility] [address] [address] Sherly Steen 03/31/2025 3:30 PM EDT Office Visit [facility] [address] [address] Karoline Heart ARNP Chronic kidney disease, stage 4 (severe) (HCC) (Primary Dx); Hypertensive disorder; Other proteinuria; Anemia in chronic kidney disease; Bilateral lower leg edema 03/11/2025 Office Communication [facility] [address] [address] Karoline Heart ARNP 03/11/2025 Orders Only [facility] [address] [phone] Karoline Heart ARNP Chronic kidney disease, stage 4 (severe) (HCC) (Primary Dx); Hypertensive disorder 03/10/2025 Documentation Only [facility] [address] [phone] Sherly Steen 03/10/2025 Telephone [facility] [address] [phone] Severo Tee MD 03/09/2025 Orders Only [facility] [address] [address] Karoline Heart ARNP Chronic kidney disease, stage 4 (severe) (HCC) (Primary Dx); Hypertensive disorder 02/09/2025 Orders Only [facility] [address] [address] Severo Tee MD Chronic kidney [...] Sign Reading Time Taken Comments Blood Pressure 120/70 03/31/2025 3:43 PM EDT Pulse 64 03/31/2025 3:43 PM EDT Temperature - - Respiratory Rate - - Oxygen Saturation 98% 10/29/2023 4:11 PM EST Inhaled Oxygen Concentration - - Weight 73.9 kg (163 lb) 03/31/2025 3:43 PM EDT Height - - Body Mass Index - - Plan of Treatment Upcoming Encounters Date Type Department Care Team (Late st Contact Info) Description 07/19/2025 3:45 PM EST Office Visit [facility] [address] [facility] [address] [place] [address] Severo Tee MD [address] [phone] Health Maintenance Due Date Last [...] Procedure Name Priority Date/Time Associated Diagnosis Comments BASIC METABOLIC PANEL Routine 03/22/2025 12:27 PM EDT Chronic kidney disease, stage 4 (severe) (HCC) Hypertensive disorder VITAMIN D 25 HYDROXY Routine 03/22/2025 12:27 PM EDT Chronic kidney disease, stage 4 (severe) (HCC) Stage 3b chronic kidney disease (HCC) Type 2 diabetes mellitus with diabetic chronic kidney disease (HCC) PROTEIN / CREATININE RATIO, URINE Routine 03/22/2025 12:27 PM EDT Chronic kidney disease, stage 4 (severe) (HCC) Stage 3b chronic kidney disease (HCC) Type 2 diabetes mellitus with diabetic chronic kidney disease (HCC) RENAL FUNCTION PANEL Routine 03/22/2025 12:27 PM EDT Chronic kidney disease, stage 4 (severe) (HCC) Stage 3b chronic kidney disease (HCC) Type 2 diabetes mellitus with diabetic chronic kidney disease (HCC) PTH, INTACT Routine 03/22/2025 12:27 PM EDT Chronic kidney disease, stage 4 (severe) (HCC) Stage 3b chronic kidney disease (HCC) Type 2 diabetes mellitus with diabetic chronic kidney disease (HCC) FERRITIN Routine 03/22/2025 12:27 PM EDT Chronic kidney disease, stage 4 (severe) (HCC) Stage 3b chronic kidney disease (HCC) Type 2 diabetes mellitus with diabetic chronic kidney disease (HCC) IRON PANEL (FE, TIBC, TSAT) Routine 03/22/2025 12:27 PM EDT Chronic kidney disease, stage 4 (severe) (HCC) Stage 3b chronic kidney disease (HCC) Type 2 diabetes mellitus with diabetic chronic kidney disease (HCC) CBC AND DIFFERENTIAL Routine 03/22/2025 12:27 PM EDT Chronic kidney disease, stage 4 (severe) (HCC) Stage 3b chronic kidney disease (HCC) Type 2 diabetes mellitus with diabetic chronic kidney disease (HCC) PTH, INTACT Routine 03/01/2025 1:03 PM EDT [...] Recently Relevant to Health Maintenance Results * Iron Panel (Fe, TIBC, TSAT) (03/22/2025 12:27 PM EDT) TIBC 326 250 - 450 ug/dL [facility] UIBC 242 111 - 343 ug/dL [facility] Iron 84 38 - 169 ug/dL [facility] Iron Saturation (TSat) 26 15 - 55 % [facility] Blood specimen (specimen) Venous blood / Unknown 03/22/2025 12:27 PM EDT 03/22/2025 us Severo Tee MD LAB BLOOD ORDERABLES Final Resu lt Performing Organization Address City/[facility]/ZIP Co de Phone Number [facility] [address] [place] [address] * (ABNORMAL) Urine Protein / creatinine ratio (03/22/2025 12:27 PM EDT) Only the most recent of2 resultswithin the time period is included. Creatinine, Ur 77.5 Not Estab. mg/dL [facility] Protein, Ur 116.4 Not Estab. mg/dL [facility] Urine Protein/Creati nine Ratio 1,502(H) 0 - 200 mg/g creat [facility] Urine specimen (specimen) Urine specimen obtained by clean catch procedure / Unknown 03/22/2025 12:27 PM EDT 03/22/2025 us Severo Tee MD LAB URINE ORDERABLES Final Resu lt [facility] [address] [place] [address] * Vitamin D 25 hydroxy (03/22/2025 12:27 PM EDT) Pathologist [facility] Vitamin D, 25-OH, Total 45.9 30.0 - 100.0 ng/mL [facility] Comment: Vitamin D deficiency has been defined by the [place] of [employer] and an Endocrine Society practice guideline as a level of serum 25-OH vitamin D less than 20 ng/mL (1,2). The Endocrine Society went on to further define vitamin D insufficiency as a level between 21 and 29 ng/mL (2). 1. IOM ([place] of [employer]). 2010. Dietary reference intakes for calcium and D. [place]: The National Academies Press. 2. Kavita MF, Issac ANDREW, Homa ALEX, et al. Evaluation, treatment, and prevention of vitamin D deficiency: an Endocrine Society clinical practice guideline. JCEM. 2010; 96(7):1911-30. Blood specimen (specimen) Venous blood / Unknown 03/22/2025 12:27 PM EDT 03/22/2025 us Severo Tee MD LAB BLOOD ORDERABLES Final Resu lt [facility] [address] [place] [address] * (ABNORMAL) CBC and Differential (03/22/2025 12:27 PM EDT) Pathologist [facility] WBC 5.0 3.4 - 10.8 x10E3/uL [facility] RBC 3.71(L) 4.14 - 5.80 x10E6/uL [facility] Hemoglobin 11.3(L) 13.0 - 17.7 g/dL [facility] Hematocrit 34.4(L) 37.5 - 51.0 % [facility] MCV 93 79 - 97 fL [facility] MCH 30.5 26.6 - 33.0 pg [facility] MCHC 32.8 31.5 - 35.7 g/dL [facility] RDW 12.7 11.6 - 15.4 % [facility] Platelets 133(L) 150 - 450 x10E3/uL [facility] Neutrophils Relative 68 Not Estab. % [facility] Lymphocytes Relative 17 Not Estab. % [facility] Monocytes 9 Not Estab. % [facility] Eosinophils Relative 5 Not Estab. % [facility] Basophils Relative 1 Not Estab. % [facility] Neutrophils Absolute 3.4 1.4 - 7.0 x10E3/uL [facility] Lymphocytes Absolute 0.8 0.7 - 3.1 x10E3/uL [facility] Monocytes Absolute 0.4 0.1 - 0.9 x10E3/uL [facility] Eosinophils Absolute 0.2 0.0 - 0.4 x10E3/uL [facility] Basophils Absolute 0.0 0.0 - 0.2 x10E3/uL [facility] Immature Granulocytes 0 Not Estab. % [facility] Immature Grans (Absolute) 0.0 0.0 - 0.1 x10E3/uL [facility] Blood specimen (specimen) Venous blood / Unknown 03/22/2025 12:27 PM EDT 03/22/2025 us Severo Tee MD LAB BLOOD ORDERABLES Final Resu lt [facility] [address] [place] [address] * PTH, intact (03/22/2025 12:27 PM EDT) Only the most recent of2 resultswithin the time period is included. Pathologist [facility] PTH 44 15 - 65 pg/mL [facility] Blood specimen (specimen) Venous blood / Unknown 03/22/2025 12:27 PM EDT 03/22/2025 us Severo Tee MD LAB BLOOD ORDERABLES Final Resu lt [facility] [address] [place] [address] * (ABNORMAL) Ferritin (03/22/2025 12:27 PM EDT) Pathologist [facility] Ferritin 26(L) 30 - 400 ng/mL [facility] Blood specimen (specimen) Venous blood / Unknown 03/22/2025 12:27 PM EDT 03/22/2025 us Severo Tee MD LAB BLOOD ORDERABLES Final Resu lt [facility] [address] [place] [address] * (ABNORMAL) Renal function panel (03/22/2025 12:27 PM EDT) Only the most recent of2 resultswithin the time period is included. Pathologist [facility] Glucose 89 70 - 99 mg/dL [facility] BUN 42(H) 8 - 27 mg/dL [facility] Creatinine 3.48(H) 0.76 - 1.27 mg/dL [facility] eGFR CKD-EPI CR 2020 19(L) >59 mL/min/1.7 3 [facility] BUN/Creatinine Ratio 12 10 - 24 [facility] Sodium 140 134 - 144 mmol/L [facility] Potassium 4.6 3.5 - 5.2 mmol/L [facility] Chloride 108(H) 96 - 106 mmol/L [facility] Bicarbonate (CO2) 18(L) 20 - 29 mmol/L [facility] Calcium 8.9 8.6 - 10.2 mg/dL [facility] Albumin 4.3 3.9 - 4.9 g/dL [facility] Phosphorus 4.2(H) 2.8 - 4.1 mg/dL [facility] Blood specimen (specimen) Venous blood / Unknown 03/22/2025 12:27 PM EDT 03/22/2025 us Severo Tee MD LAB BLOOD ORDERABLES Final Resu lt [facility] [address] [place] [address] * (ABNORMAL) Basic metabolic panel (03/22/2025 12:27 PM EDT) Glucose 89 70 - 99 mg/dL [facility] BUN 46(H) 8 - 27 mg/dL [facility] Creatinine 3.53(H) 0.76 - 1.27 mg/dL [facility] eGFR CKD-EPI CR 2020 19(L) >59 mL/min/1.7 3 [facility] BUN/Creatinine Ratio 13 10 - 24 [facility] Sodium 141 134 - 144 mmol/L [facility] Potassium 4.9 3.5 - 5.2 mmol/L [facility] Chloride 108(H) 96 - 106 mmol/L [facility] Bicarbonate (CO2) 18(L) 20 - 29 mmol/L [facility] Calcium 8.8 8.6 - 10.2 mg/dL [facility] Blood Venous blood / Unknown 03/22/2025 12:27 PM EDT 03/22/2025 Kar[facility] LAB BLOOD ORDERABLES Final Result Performing Organization Address City/[facility] Co de Phone Number [facility] [address] [place] [address] * (ABNORMAL) Urine Albumin / Creatinine Ratio (03/01/2025 1:03 PM EDT) Albumin, Urine 592.3 Not Estab. ug/mL [facility] Comment: Results confirmed on dilution. Albumin/Creatin ine Ratio 529(H) 0 - 29 mg/g creat [facility] Comment: Normal: 0 - 29 Moderately increased: 30 - 300 Severely increased: >300 03/01/2025 1:03 PM EDT 03/01/2025 Karoline [facility] LAB URINE ORDERABLES Final Result Performing Organization Address City/[facility]/ZIP Co de Phone Number [facility] [address] [place] [address] * (ABNORMAL) CBC (03/01/2025 1:03 PM EDT) WBC 5.5 3.4 - 10.8 x10E3/uL [facility] RBC 3.38(L) 4.14 - 5.80 x10E6/uL [facility] Hemoglobin 10.5(L) 13.0 - 17.7 g/dL [facility] Hematocrit 31.2(L) 37.5 - 51.0 % [facility] MCV 92 79 - 97 fL [facility] MCH 31.1 26.6 - 33.0 pg [facility] MCHC 33.7 31.5 - 35.7 g/dL [facility] RDW 12.7 11.6 - 15.4 % [facility] Platelets 114(L) 150 - 450 x10E3/uL [facility] 03/01/2025 1:03 PM EDT 03/01/2025 [facility] LAB BLOOD ORDERABLES Final Result Performing Organization Address City/[facility]/ZIP Co de Phone Number [facility] [address] [place] [address] * (ABNORMAL) Magnesium (03/01/2025 1:03 PM EDT) Magnesium 2.4(H) 1.6 - 2.3 mg/dL [facility] 03/01/2025 1:03 PM EDT 03/01/2025 [facility] LAB BLOOD ORDERABLES Final Result Performing Organization Address City/[facility] Co de Phone Number [facility] [address] [place] [address] * (ABNORMAL) EXT RESULT ENTRY (10/02/2023) Sodium [...] Most Recently Relevant to Health Maintenance Insurance [facility] Medicaid Care Teams Head Turbine Operator Relationship Specialty Start Date End Date William Puentes MD [id number] [place] PCP - General Internal Medicine 12/27/22
[2025-05-07 15:38] VITALS: BP 120/66; PULSE 77; RESP 16; TEMP 36.8; O2SAT 95; BMI 25.8
--- NOTE | 2025-05-07 15:38 | A.OFFVIS_ITS ---
Vital Signs 05/07/25 15:38 Height 5 ft 7 in Weight 74.843 kg BMI 25.8 BP 120/66 Blood Pressure Location Rt brachial Position Sitting Respiration 16 Pulse 77 Pulse Source Pulse Oximeter Temp 98.2 F Temp Source Oral Pulse Oximetry (%) 95 Oxygen Delivery Method Room Air Intake Visit Reasons: routine f/u Intake Note: Patient presents for outine follow up visit. 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 He has been following with Dr. Tee for management of his CKD. Reports he does still make urine but conversations have been had about dialysis in the future. He does have diabetic polyneuropathy but is not overly bothered by the symptoms and is not interested in taking medications for this. He does also have diabetes associated cataracts and retinopathy for which he follows with Ophthalmology and will be undergoing surgery and continues with injections for the retinopathy. He states his glucose levels have been controlled so he has not been using his Lantus or sliding scale insulin. He does have freestyle Andre and reports glucose levels have been controlled. Type 2 diabetes-due for hemoglobin A1c. Reports glucose levels have been well- controlled. Discontinued his insulin due to hypoglycemia. Glucose in the office today 98. Compliant with glipizide. Complicated by cataracts and retinopathy. Will be undergoing cataract surgery next month. He also receives injections for the retinopathy Hypertension-blood pressure 120/68. On amlodipine 5 mg, hydralazine 75 mg twice daily, and carvedilol 12.5 mg twice daily. CKD stage 4-following with Dr. Salazar. Recently started on furosemide 20 mg daily. He is reporting lower extremity edema Hyperlipidemia-on atorvastatin Depression/anxiety-on mirtazapine Paroxysmal atrial fibrillation-reports known diagnosis. He briefly went into AFib with RVR in the office with heart rate up to 140 which broke with heart rate 68. Asymptomatic. No palpitations, dyspnea, lightheadedness, chest pain per patient. He is on rate control but not any anticoagulation Concerns: Bilateral lower extremity edema-no dyspnea on exertion, orthopnea to suggest acute CHF exacerbation. On Lasix Left-sided knee pain-longstanding, intermittent. Reports pain with stairs and with extension of his leg. He states he is unable to lead with the left leg while on stairs. Denies any no injury. Previously followed with Orthopedics. Lump in the epigastrium-reports longstanding. About the size of a marble. Uncomfortable, not painful. 2+ ROS: General: No fevers, malaise, unintentional weight loss HEENT: No blurred vision, diplopia. No sore throat, nasal congestion, rhinorrhea, sinus pain, ear pain Cardiovascular: No chest pain, palpitations, or leg edema Respiratory: No shortness of breath, wheezing, cough GI: No abdominal pain, nausea, vomiting, diarrhea, constipation, melena, hematochezia : No dysuria, hematuria, increased urinary frequency, decreased urinary output MSK: No myalgia, back pain Neuro: No headaches, weakness, paresthesias Skin: No rashes or lesions EXAM: Constitutional - Awake and Alert, No apparent distress Eyes - PERRL Cardiovascular - S1S2, irregularly irregular, No edema Respiratory - Normal lung expansion, Normal respiratory effort, No respiratory distress, CTA bilaterally GI - superficial marble-sized mobile mass in the epigastrium Extremities - no calf tenderness bilaterally, no swelling MSK-left knee nontender to palpation with full flexion and extension. Negative Haydee test. No bony abnormality, effusion, warmth, swelling Skin - Warm/Dry Neurological - Alert & oriented x3 Psychological - Appropriate affect PFSH Medical History (Updated 05/07/25 @ 17:41 by GRISEL Calderon) Diabetic polyneuropathy Diabetic retinopathy Controlled diabetes mellitus with diabetic cataract Depression Non-occlusive thrombus CKD (chronic kidney disease), stage IV HTN (hypertension) HLD (hyperlipidemia) Kidney disease Diabetic acidosis, type I High cholesterol Family History (Updated 01/11/25 @ 16:11 by FADUMO Langford) Mother Diabetes A-fib Kidney failure Father Diabetes Heart problem Social History (Updated 01/11/25 @ 16:11 by FADUMO Langford) Housing: House Alcohol intake: current Alcohol intake frequency: holidays/special occasions only Patient Tobacco Use Status: Never used Tobacco service: No Current occupational status: employed 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 Cognitive needs: No Hearing needs: No Vision needs: Yes (Reading glasses) Physical Exam Vital Signs: Last Vital Signs Temp 98.2 F 05/07/25 15:38 Pulse 77 05/07/25 15:38 Resp 16 05/07/25 15:38 BP 120/66 05/07/25 15:38 Pulse Ox 95 05/07/25 15:38 Oxygen Delivery Method Room Air 05/07/25 15:38 BMI result Body Mass Index 25.8 Assessment & Plan Assessment & Plan (1) HTN (hypertension): Code(s): I10 - Essential (primary) hypertension Category: Medical Plan: Controlled. Continue Coreg, amlodipine, hydralazine (2) HLD (hyperlipidemia): Code(s): E78.5 - Hyperlipidemia, unspecified Category: Medical Plan: Lipid panel ordered. Continue atorvastatin (3) Diabetes mellitus: Code(s): E11.9 - Type 2 diabetes mellitus without complications Category: Medical Plan: Hemoglobin A1c ordered. Continue glipizide. Can continue off of insulin given hypoglycemia. Diabetic diet advised. Continue following with Ophthalmology (4) Paroxysmal A-fib: Code(s): I48.0 - Paroxysmal atrial fibrillation Category: Medical Plan: Brief period of RVR in the office today with rate maintained in the 60s falling episode. Continue Coreg. Not on anticoagulation. Follow-up with Cardiology Plan Follow-up in the office in 4 months. He is counseled that if he develops symptomatic RVR he is to present to the ED. Orders: Orders Hemoglobin A1c Today E11.22 - Type 2 diabetes mellitus with diabetic chronic kidney disease, E11.9 - Type 2 diabetes mellitus without complications, I10 - Essential (primary) hypertension, N18.4 - Chronic kidney disease, stage 4 (severe) Basic Metabolic Panel Today E11.22 - Type 2 diabetes mellitus with diabetic chronic kidney disease, E11.9 - Type 2 diabetes mellitus without complications, I10 - Essential (primary) hypertension, N18.4 - Chronic kidney disease, stage 4 (severe) Referrals Orthopedics Referral M17.12 - Unilateral primary osteoarthritis, left knee, M70.42 - Prepatellar bursitis, left knee Coding Level of Care Code Est Pt Level 4 (70320) Complex EM visit Add On G2211 Diagnoses HTN (hypertension) I10 HLD (hyperlipidemia) E78.5 Diabetes mellitus E11.9 Paroxysmal A-fib I48.0
== END 2025-05-07 16:29 | disposition home or self-care (01) ==
LOC: HO.HMCHD 15:28
PROVIDERS: PCP Internal Medicine; Visit Provider Physician Assistant
DX: I10 Essential (primary) hypertension (principal); E78.5 Hyperlipidemia, unspecified; E11.9 Type 2 diabetes mellitus without complications; I48.0 Paroxysmal atrial fibrillation

== ENCOUNTER → 2025-05-07 15:28 | Outpatient (BNVA) | payer OTHER, SELFPAY | PROVIDERS: PCP Internal Medicine; Visit Provider Physician Assistant | DX: I10 Essential (primary) hypertension (principal); E78.5 Hyperlipidemia, unspecified; I48.0 Paroxysmal atrial fibrillation; E11.22 Type 2 diabetes mellitus with diabetic chronic kidney disease; N18.4 Chronic kidney disease, stage 4 (severe); M17.12 Unilateral primary osteoarthritis, left knee; M70.42 Prepatellar bursitis, left knee | CPT/HCPCS: 99212 ==

== ENCOUNTER 2025-05-28 11:26 | Outpatient (REF) | payer OTHER, SELFPAY ==
[2025-05-28 13:40] LABS: Hemoglobin A1C 152.5151 umol/L; Total Hemoglobin (HGBA1C) 3280.0649 umol/L
[2025-05-28 14:03] LABS: Anion Gap 12 (12-20); Blood Urea Nitrogen 70 mg/dL (9-16); Calcium 9.2 mg/dL (8.4-10.2); Carbon Dioxide 27 mmol/L (22-29); Chloride 110 mmol/L (96-108); Estimated Glomerular Filt Rate 14; Potassium 4.0 mmol/L (3.3-5.1); Sodium 145 mmol/L (135-145)
== END 2025-05-28 11:27 | disposition home or self-care (01) ==
LOC: HO.LAB 11:26
PROVIDERS: Absent Provider Physician Assistant; PCP Physician Assistant; Visit Provider Nurse Practitioner Family
DX: Z12.11 Encounter for screening for malignant neoplasm of colon (principal); E11.22 Type 2 diabetes mellitus with diabetic chronic kidney disease; I12.9 Hypertensive chronic kidney disease with stage 1 through stage 4 chronic kidney disease, or unspecified chronic kidney disease; N18.4 Chronic kidney disease, stage 4 (severe)
CPT/HCPCS: 36415; 80048; 83036; 99202

== ENCOUNTER 2025-05-28 11:26 | Outpatient (AMB) | payer OTHER, SELFPAY ==
--- NOTE | 2025-05-28 11:36 | MHC.OFFVIS ---
Vital Signs 05/28/25 11:46 Height 5 ft 7 in Weight 165 lb BMI 25.8 BP 148/78 H Blood Pressure Location Rt brachial Position Sitting Pulse 62 Pulse Source Pulse Oximeter Pulse Oximetry (%) 95 Oxygen Delivery Method Room Air Intake Visit Reasons: [place] screening Intake Note: New pt for recall colo screening. Last in 2010 via [facility]? CC; Pt denies any GI sx or concerns at this time. Paper Reeler Required: No Accompanied by: Self / Same As Patient Allergies No Known Allergies Allergy (Verified 05/28/25 11:36) HPI HPI [place] screening: Details: ?Last colonoscopy 2010 - had 2 polyps removed and internal hemorrhoids.? Today reports no significant issues with bowel movements. Has a bowel movement daily.? Occasional heartburn, resolves with glass of milk. Feels like they have a lump in upper abdomen was supposed to get an ultrasound a year ago - but has not been called. Painful at times, reports it feels rock hard and achy.? 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 Has a history of AFIB, was previously on eliquis and was stopped by PCP, He is unsure as to why eliquis was stopped but is currently taking 81mg asa daily. He reports he does not see cardiology.? He reports occasional heartburn, usually dietary related and he resolves with milk. He is also reporting a sensation of a bulge in upper right abdomen, reports he saw his PCP about 1 year ago for this and was supposed to have an ultrasound of area but has not had done.? Today he denies dysphagia, dyspepsia, odynophagia,early satiety, epigastric pain, lower abdominal pain, belching, change in bowel habits, diarrhea, loose stools, constipation, bloating, melena, hematochezia, excessive flatus, ribbon like stools, nausea, vomiting, unintentional weight loss. Dad with history of colon cancer. Has no known adverse reactions to anesthesia. No history of JOSE. Takes baby aspirin daily. Hx afib, no longer taking eliquis. Denies any chest pain or shortness of breath.? 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[employer] Cognitive needs: No Hearing needs: No Vision needs: Yes (Reading glasses) Review of Systems Const Denies weight gain and Denies weight loss ENT Reports no additional complaints, Denies dysphagia and Denies odynophagia Card Reports no additional complaints Resp Reports no additional complaints GI Denies abdominal pain, Denies belching, Denies melena, Denies bloating, Denies change in bowel habits, Denies dysphagia, Denies excessive flatus, Denies dyspepsia, Denies heartburn, Denies diarrhea, Denies loose stools, Denies nausea, Denies odynophagia and Denies vomiting Reports no additional complaints Musc Reports no additional complaints Neuro Reports no additional complaints Psych Reports no additional complaints Endo Reports no additional complaints Physical Exam Vital Signs: Last Vital Signs Pulse 62 05/28/25 11:46 BP 148/78 H 05/28/25 11:46 Pulse Ox 95 05/28/25 11:46 Oxygen Delivery Method Room Air 05/28/25 11:46 BMI result Body Mass Index 25.8 Const General: healthy appearing, no acute distress and well developed Nutritional Appearance: well nourished Orientation/consciousness: patient oriented x3 Resp Effort & Inspection: normal respiratory effort, able to speak in complete sentences, no tracheal deviation and symmetric chest movement Auscultation: clear to auscultation bilaterally Cardio Rate: regular rate GI Inspection: Yes normal to inspection and No distended Palpation (GI): Soft to palpation, not firm, nontender and No hepatosplenomegaly present Auscultation: normal bowel sounds General: Yes no CVA tenderness Back/Spine/Pelvis Back: no CVA tenderness Skin General skin exam: elasticity normal, turgor normal and dry skin Neuro General: patient oriented x3 Psych Appearance: grossly normal Mental Status: mental status grossly normal Assessment & Plan Assessment & Plan (1) Screen for colon cancer: Code(s): Z12.11 - Encounter for screening for malignant neoplasm of colon Plan Will send for colonoscopy. Patient instructed on split dose colonoscopy prep. Bisacodyl 5 mg PO ?4 at noon the day prior, then MiraLax crit prep Handout given with foods/colors to avoid prior to colonoscopy. RN will follow up with patient 1 week prior to colonoscopy to reiterate education. Patient will follow up in office 1-2 weeks after colonoscopy or sooner if needed.? If patient has no post up symptoms she does not need a follow-up. Patient is agreeable to this plan and verbalizes understanding of instructions. He was given the opportunity to ask questions and all questions answered. Thank you for allowing me to participate in his care Orders: Referrals GI Procedure Notification Z12.11 - Encounter for screening for malignant neoplasm of colon Medications: New bisacodyl (Dulcolax (bisacodyl)) take 4 tabs at noon the day before your colonoscopy 20 mg (4 x 5 mg) PO ONCE 4 tabs 0RF constipation 1 day Z12.11 - Encounter for screening for malignant neoplasm of colon polyethylene glycol 3350 (Miralax) As directed by gastroenterology department at [facility] 238 grams PO ONCE 238 grams 0RF Z12.11 - Encounter for screening for malignant neoplasm of colon Coding Level of Care Code New Pt Level 3 (85076) Diagnoses Screen for colon cancer Z12.11 Time Spent (min) 40 Comment 30 minutes spent with patient and additional 10 minutes spent reviewing his records
[2025-05-28 11:46] VITALS: BP 148/78; PULSE 62; O2SAT 95; BMI 25.8
--- OUTSIDE RECORDS SUMMARY | 2025-05-28 13:20 | XMS_ITS | Clinical Summary ---
Author Organization [facility] Address [address] [address] Phone Care Team Providers Care Pocket Closer Name Role Phone William Puentes MD Primary Care Provider [phone] Allergies No known active allergies Medications mirtazapine [...] (05/08/2023): Sees psych at [address]( MAIL COURIER)Has tolerated [id number] in the past. Paresthesia of hand 05/08/2023 05/08/2023 Overview (05/08/2023): Referred to hand and hospital product specialist at [facility].10/29/14: EMG: There is nerve conduction study evidence [...] neuropathy. Type 2 diabetes mellitus 05/08/2023 023 Pgfuc-Inoxvkoic-Gzcfk pattern 05/08/2023 Overview (05/08/2023): EP study on [...] Office Communication [facility] [address] [address] Sherly Steen 03/31/2025 3:30 PM EDT Office Visit [facility] [address] [address] Karoline Heart ARNP Chronic kidney disease, stage 4 (severe) (HCC) (Primary Dx); Hypertensive disorder; Other proteinuria; Anemia in chronic kidney disease; Bilateral lower leg edema 03/11/2025 Office Communication [facility] [address] [address] Karoline Heart ARNP 03/11/2025 Orders Only [facility] [address] [phone] Karoline Heart ARNP Chronic kidney disease, stage 4 (severe) (HCC) (Primary Dx); Hypertensive disorder 03/10/2025 Documentation Only [facility] [address] [address] Sherly Steen 03/10/2025 Telephone [facility] [address] [address] Severo Tee MD 03/09/2025 Orders Only [facility] [address] [address] Karoline Heart ARNP Chronic kidney disease, stage 4 (severe) (HCC) (Primary Dx); Hypertensive disorder from Last 3 Months Family History Medical [...] Care Team (Late st Contact Info) Description 06/20/2025 Orders Only [facility] [address] [phone] Karoline Heart ARNP [address] [place] [phone] Chronic kidney disease, stage 4 (severe) (HCC); Hypertensive disorder; Other proteinuria; Anemia in chronic kidney disease 07/19/2025 3:45 PM EST Office Visit [facility] [address] [address] Severo Tee MD [address] [address] Health Maintenance Due Date Last [...] TIBC 326 250 - 450 ug/dL [facility] UIBC 242 111 - 343 ug/dL [facility] Iron 84 38 - 169 ug/dL [facility] Iron Saturation (TSat) 26 15 - 55 % [facility] Blood specimen (specimen) Venous blood / Unknown 03/22/2025 12:27 PM EDT 03/22/2025 us Severo Tee MD LAB BLOOD ORDERABLES Final Resu lt Performing Organization Address City/State/[facility] Co de Phone Number [facility] [address] [place] [address] * (ABNORMAL) Urine Protein / creatinine ratio (03/22/2025 12:27 PM EDT) Only the most recent of2 resultswithin the time period is included. Creatinine, Ur 77.5 Not Estab. mg/dL [facility] Protein, Ur 116.4 Not Estab. mg/dL [facility] Urine Protein/Creati nine Ratio 1,502(H) 0 - 200 mg/g creat [facility] Urine specimen (specimen) Urine specimen obtained by clean catch procedure / Unknown 03/22/2025 12:27 PM EDT 03/22/2025 us Severo Tee MD LAB URINE ORDERABLES Final Resu lt Performing Organization Address City/[facility]/ZIP Co de Phone Number [facility] [address] [place] [address] * Vitamin D 25 hydroxy (03/22/2025 12:27 PM EDT) Vitamin D, 25-OH, Total 45.9 30.0 - 100.0 ng/mL [facility] Comment: Vitamin D deficiency has been defined by the [place] of Medicine and an Endocrine Society practice guideline as a level of serum 25-OH vitamin D less than 20 ng/mL (1,2). The Endocrine Society went on to further define vitamin D insufficiency as a level between 21 and 29 ng/mL (2). 1. IOM ([place] of Medicine). 2010. Dietary reference intakes for calcium and D. [place]: The National Academies Press. 2. Kavita MF, Issac NC, Homa ALEX, et al. Evaluation, treatment, and prevention of vitamin D deficiency: an Endocrine Society clinical practice guideline. JCEM. 2010; 96(7):1911-30. Blood specimen (specimen) Venous blood / Unknown 03/22/2025 12:27 PM EDT 03/22/2025 us Severo Tee MD LAB BLOOD ORDERABLES Final Resu lt Performing Organization Address City/[facility]/ZIP Co de Phone Number [facility] [address] [place] [address] * (ABNORMAL) CBC and Differential (03/22/2025 12:27 PM EDT) WBC 5.0 3.4 - 10.8 x10E3/uL [facility] RBC 3.71(L) 4.14 - 5.80 x10E6/uL [facility] Hemoglobin 11.3(L) 13.0 - 17.7 g/dL [facility] Hematocrit 34.4(L) 37.5 - 51.0 % [facility] MCV 93 79 - 97 fL [facility] MCH 30.5 26.6 - 33.0 pg [facility] MCHC 32.8 31.5 - 35.7 g/dL [facility] RDW 12.7 11.6 - 15.4 % [facility] Platelets 133(L) 150 - 450 x10E3/uL [facility] Neutrophils Relative 68 Not Estab. % [facility] Lymphocytes Relative 17 Not Estab. % [facility] Monocytes 9 Not Estab. % [facility] Eosinophils Relative 5 Not Estab. % [facility] Basophils Relative 1 Not Estab. % [facility] Neutrophils Absolute 3.4 1.4 - 7.0 x10E3/uL [facility] Lymphocytes Absolute 0.8 0.7 - 3.1 x10E3/uL [facility] Monocytes Absolute 0.4 0.1 - 0.9 x10E3/uL [facility] Eosinophils Absolute 0.2 0.0 - 0.4 x10E3/uL [facility] Basophils Absolute 0.0 0.0 - 0.2 x10E3/uL [facility] Immature Granulocytes 0 Not Estab. % [facility] Immature Grans (Absolute) 0.0 0.0 - 0.1 x10E3/uL [facility] Blood specimen (specimen) Venous blood / Unknown 03/22/2025 12:27 PM EDT 03/22/2025 us Severo Tee MD LAB BLOOD ORDERABLES Final Resu lt Performing Organization Address City/[facility]/ZIP Co de Phone Number [facility] [address] [place] [address] * PTH, intact (03/22/2025 12:27 PM EDT) Only the most recent of2 resultswithin the time period is included. PTH 44 15 - 65 pg/mL [facility] Blood specimen (specimen) Venous blood / Unknown 03/22/2025 12:27 PM EDT 03/22/2025 Severo Tee MD LAB BLOOD ORDERABLES Final Resu lt Performing Organization Address [facility] Co de Phone Number [facility] [place] [address] [place] [address] * (ABNORMAL) Ferritin (03/22/2025 12:27 PM EDT) Ferritin 26(L) 30 - 400 ng/mL [facility] Blood specimen (specimen) Venous blood / Unknown 03/22/2025 12:27 PM EDT 03/22/2025 Severo Tee MD LAB BLOOD ORDERABLES Final Resu lt Performing Organization Address City/[facility]/ZIP Co de Phone Number [facility] [address] [place] [address] * (ABNORMAL) Renal function panel (03/22/2025 12:27 PM EDT) Only the most recent of2 resultswithin the time period is included. Glucose 89 70 - 99 mg/dL [facility] BUN 42(H) 8 - 27 mg/dL [facility] Creatinine 3.48(H) 0.76 - 1.27 mg/dL [facility] eGFR CKD-EPI CR 2020 19(L) >59 mL/min/1.7 3 [facility] BUN/Creatinine Ratio 12 10 - 24 [facility] Sodium 140 134 - 144 mmol/L [facility] Potassium 4.6 3.5 - 5.2 mmol/L [facility] Chloride 108(H) 96 - 106 mmol/L [facility] Bicarbonate (CO2) 18(L) 20 - 29 mmol/L [facility] Calcium 8.9 8.6 - 10.2 mg/dL [facility] Albumin 4.3 3.9 - 4.9 g/dL [facility] Phosphorus 4.2(H) 2.8 - 4.1 mg/dL [facility] Blood specimen (specimen) Venous blood / Unknown 03/22/2025 12:27 PM EDT 03/22/2025 us Severo Tee MD LAB BLOOD ORDERABLES Final Resu lt [facility] [address] [place] [address] * (ABNORMAL) Basic metabolic panel (03/22/2025 12:27 PM EDT) Pathologist [facility] Glucose 89 70 - 99 mg/dL [facility] BUN 46(H) 8 - 27 mg/dL [facility] Creatinine 3.53(H) 0.76 - 1.27 mg/dL [facility] eGFR CKD-EPI CR 2020 19(L) >59 mL/min/1.7 3 [facility] BUN/Creatinine Ratio 13 10 - 24 [facility] Sodium 141 134 - 144 mmol/L [facility] Potassium 4.9 3.5 - 5.2 mmol/L [facility] Chloride 108(H) 96 - 106 mmol/L [facility] Bicarbonate (CO2) 18(L) 20 - 29 mmol/L [facility] Calcium 8.8 8.6 - 10.2 mg/dL [facility] Blood Venous blood / Unknown 03/22/2025 12:27 PM EDT 03/22/2025 [facility] LAB BLOOD ORDERABLES Final Result Performing Organization Address City/[facility]/ZIP Co de Phone Number [facility] [place] [address] [place] [address] * (ABNORMAL) Urine Albumin / Creatinine Ratio (03/01/2025 1:03 PM EDT) Albumin, Urine 592.3 Not Estab. ug/mL [facility] Comment: Results confirmed on dilution. Albumin/Creatin ine Ratio 529(H) 0 - 29 mg/g creat [facility] Comment: Normal: 0 - 29 Moderately increased: 30 - 300 Severely increased: >300 03/01/2025 1:03 PM EDT 03/01/[address] [facility] LAB URINE ORDERABLES Final Result Performing Organization Address City/[facility]/ZIP Co de Phone Number [facility] [place] [address] [place] [address] * (ABNORMAL) CBC (03/01/2025 1:03 PM EDT) WBC 5.5 3.4 - 10.8 x10E3/uL [facility] RBC 3.38(L) 4.14 - 5.80 x10E6/uL [facility] Hemoglobin 10.5(L) 13.0 - 17.7 g/dL [facility] Hematocrit 31.2(L) 37.5 - 51.0 % [facility] MCV 92 79 - 97 fL [facility] MCH 31.1 26.6 - 33.0 pg [facility] MCHC 33.7 31.5 - 35.7 g/dL [facility] RDW 12.7 11.6 - 15.4 % [facility] Platelets 114(L) 150 - 450 x10E3/uL [facility] 03/01/2025 1:03 PM EDT 03/01/2025 [facility] LAB BLOOD ORDERABLES Final Result [facility] [address] [place] [address] * (ABNORMAL) Magnesium (03/01/2025 1:03 PM EDT) Magnesium 2.4(H) 1.6 - 2.3 mg/dL [facility] 03/01/2025 1:03 PM EDT 03/01/2025 [facility]AB[facility] Final Result [facility] [address] [place] [address] * (ABNORMAL) EXT RESULT ENTRY (10/02/2023) Sodium [...] Most Recently Relevant to Health Maintenance Insurance [facility] Medicaid Care Teams Pocket Closer Relationship Specialty Start Date End Date William Puentes MD [address] [place] [address] [address] [place], [place] PCP - General Internal Medicine 12/27/22
--- OUTSIDE RECORDS SUMMARY | 2025-05-28 13:20 | XMS_ITS | Clinical Summary ---
Author Organization 175 [facility] Address 175 [place] [address] Phone Care Team Providers Care Curriculum Assistant Principal Name Role Phone Delvin Sweeney MD Primary Care Provider [phone] Allergies No known active allergies Encounters Date Type Department Care Team Description 04/12/2025 1:00 PM EDT Office Visit Orthopedic Surgery [facility] [address] [phone] Lyndon Baugh DPM Poorly controlled type 2 [...] Upcoming Encounters Date Type Department Care Team ([facility] st Contact Info) Description 06/14/2025 3:00 PM EDT Office Visit Orthopedic Surgery [facility] [address] [phone] Lyndon Baugh DPM [address] [address] Health Maintenance Due Date Last [...] to complete this topic [place] Care Teams Curriculum Assistant Principal Relationship Specialty Start Date End Date Delvin Sweeney MD [facility] [address] [place] [address] [address] [place] [address] PCP - General Internal Medicine 01/15/25
--- OUTSIDE RECORDS SUMMARY | 2025-05-28 13:20 | XMS_ITS | Encounter Summary ---
Author Organization [facility] Address [address] [address] Phone Care Team Providers Care Seed Mill Superintendent Name Role Phone William Puentes MD Primary Care Provider [phone] Encounter Details Date Type Department Care Team (Late st Contact Info) Description 09/17/2024 Office Communication [facility] [address] [address] Karoline Heart ARNP [address] [address] Social History Tobacco Use Types [...] Orders Only [facility] [address] [phone] Karoline eHart ARNP [address] [address] Chronic kidney disease, stage 4 (severe) (HCC); Hypertensive disorder; Other proteinuria; Anemia in chronic kidney disease 07/19/2025 3:45 PM EST Office Visit [facility].. [address] [phone] Severo Tee MD [address] [address] documented as of this encounter Visit Diagnoses Not on filedocumented in this encounter Care Teams Seed Mill Superintendent Relationship Specialty Start Date End Date William Puentes MD [address] [place], [place] PCP - General Internal Medicine 12/27/22 documented as of this encounter
== END 2025-05-28 12:38 | disposition home or self-care (01) ==
LOC: HO.HGI 11:26
PROVIDERS: PCP Internal Medicine; Visit Provider Nurse Practitioner Family
DX: Z01.818 Encounter for other preprocedural examination (principal); Z12.11 Encounter for screening for malignant neoplasm of colon
CPT/HCPCS: 99203

== ENCOUNTER 2025-06-17 09:08 | Day surgery (SDC) | payer OTHER, SELFPAY ==
--- OUTSIDE RECORDS SUMMARY | 2025-06-01 13:25 | XMS_ITS | Clinical Summary ---
Author Organization 175 [facility] Address [address] [place] [address] Phone Care Team Providers Care Special Day Class Teacher Name Role Phone Delvin Sweeney MD Primary Care Provider [phone] Allergies No known active allergies Encounters Date Type Department Care Team Description 04/12/2025 1:00 PM EDT Office Visit Orthopedic Surgery [facility] [address] [phone] Lyndon Baugh DPM Poorly controlled type 2 [...] Upcoming Encounters Date Type Department Care Team ([facility] st Contact Info) Description 06/14/2025 3:00 PM EDT Office Visit Orthopedic Surgery [facility] [address] [phone] Lyndon Baugh DPM [address] [address] Health Maintenance Due Date Last [...] to complete this topic [place] Care Teams Special Day Class Teacher Relationship Specialty Start Date End Date Delvin Sweeney MD [facility] [address] [place] [address] [address] [place] [address] PCP - General Internal Medicine 01/15/25
--- OUTSIDE RECORDS SUMMARY | 2025-06-01 13:25 | XMS_ITS | Encounter Summary ---
Author Organization [facility] Address [address] [address] Phone Care Team Providers Care Tank House Operator Helper Name Role Phone William Puentes MD Primary Care Provider [phone] Encounter Details Date Type Department Care Team (Late st Contact Info) Description 09/17/2024 Office Communication [facility] [address] [address] Karoline Heart ARNP [address] [address] Social History Tobacco Use Types [...] Orders Only [facility] [address] [phone] Karoline Heart ARNP [address] [address] Chronic kidney disease, stage 4 (severe) (HCC); Hypertensive disorder; Other proteinuria; Anemia in chronic kidney disease 07/19/2025 3:45 PM EST Office Visit [facility] [place] [place].. [address] [phone] Severo Tee MD [address] [address] documented as of this encounter Visit Diagnoses Not on filedocumented in this encounter Care Teams Tank House Operator Helper Relationship Specialty Start Date End Date William Puentes MD [address] [place], [place] PCP - General Internal Medicine 12/27/22 documented as of this encounter
--- OUTSIDE RECORDS SUMMARY | 2025-06-01 13:25 | XMS_ITS | Clinical Summary ---
Author Organization [facility] Address [address] [address] Phone Care Team Providers Care Risk Control Consultant Name Role Phone William Puentes MD Primary Care Provider [phone] Allergies No known active allergies Medications mirtazapine [...] (05/08/2023): Sees psych at [address]( [employer])Has tolerated [id number] in the past. Paresthesia of hand 05/08/2023 05/08/2023 Overview (05/08/2023): Referred to hand and visitor services specialist at [facility].10/29/14: EMG: There is nerve conduction [...] neuropathy. Type 2 diabetes mellitus 05/08/2023 023 Sxkas-Bionvgxst-Vrwmf pattern 05/08/2023 Overview (05/08/2023): EP study on [...] Communication [facility] [address] [address] Sherly Steen 03/31/2025 3:30 PM EDT Office Visit [facility] [address] [address] Karoline Heart ARNP Chronic kidney disease, stage 4 (severe) (HCC) (Primary Dx); Hypertensive disorder; Other proteinuria; Anemia in chronic kidney disease; Bilateral lower leg edema 03/11/2025 Office Communication [facility] [address] [address] Karoline Heart ARNP 03/11/2025 Orders Only [facility] [address] [address] Karoline Heart ARNP Chronic kidney disease, stage 4 (severe) (HCC) (Primary Dx); Hypertensive disorder 03/10/2025 Documentation Only [facility] [address] [address] Sherly Steen 03/10/2025 Telephone [facility] [address] [address] Severo Tee MD 03/09/2025 Orders Only [facility] [address] [address] Karoline Heart ARNP Chronic kidney [...] Only [facility] [address] [address] Karoline Heart ARNP [address] [place] [phone] Chronic kidney disease, stage 4 (severe) (HCC); Hypertensive disorder; Other proteinuria; Anemia in chronic kidney disease 07/19/2025 3:45 PM EST Office Visit [facility] [address] [address] Severo Tee MD [address] [address] Health Maintenance Due Date Last [...] TIBC 326 250 - 450 ug/dL [facility] UIBC 242 111 - 343 ug/dL [facility] Iron 84 38 - 169 ug/dL [facility] Iron Saturation (TSat) 26 15 - 55 % [facility] Blood specimen (specimen) Venous blood / Unknown 03/22/2025 12:27 PM EDT 03/22/2025 us Severo Tee MD LAB BLOOD ORDERABLES Final Resu lt Performing Organization Address City/State/[facility] Co de Phone Number [facility] [address] [place] [address] * (ABNORMAL) Urine Protein / creatinine ratio (03/22/2025 12:27 PM EDT) Only the most recent of2 resultswithin the time period is included. Creatinine, Ur 77.5 Not Estab. mg/dL [facility] Protein, Ur 116.4 Not Estab. mg/dL [facility] Urine Protein/Creati nine Ratio 1,502(H) 0 - 200 mg/g creat [facility] Urine specimen (specimen) Urine specimen obtained by clean catch procedure / Unknown 03/22/2025 12:27 PM EDT 03/22/2025 us Severo Tee MD LAB URINE ORDERABLES Final Resu lt Performing Organization Address City/[facility]/ZIP Co de Phone Number [facility] [address] [place] [address] * Vitamin D 25 hydroxy (03/22/2025 12:27 PM EDT) Vitamin D, 25-OH, Total 45.9 30.0 - 100.0 ng/mL [facility] Comment: Vitamin D deficiency has been defined by the Latty of Medicine and an Endocrine Society practice guideline as a level of serum 25-OH vitamin D less than 20 ng/mL (1,2). The Endocrine Society went on to further define vitamin D insufficiency as a level between 21 and 29 ng/mL (2). 1. IOM (Latty of Medicine). 2010. Dietary reference intakes for [...] ORDERABLES Final Resu lt Performing Organization Address City/[facility]/ZIP Co de Phone Number [facility] [address] [place] [address] * (ABNORMAL) CBC and Differential (03/22/2025 12:27 PM EDT) WBC 5.0 3.4 - 10.8 x10E3/uL [facility] RBC 3.71(L) 4.14 - 5.80 x10E6/uL [facility] Hemoglobin 11.3(L) 13.0 - 17.7 g/dL [facility] Hematocrit 34.4(L) 37.5 - 51.0 % [facility] MCV 93 79 - 97 fL [facility] MCH 30.5 26.6 - 33.0 pg [facility] MCHC 32.8 31.5 - 35.7 g/dL [facility] RDW 12.7 11.6 - 15.4 % [facility] Platelets 133(L) 150 - 450 x10E3/uL [facility] Neutrophils Relative 68 Not Estab. % [facility] Lymphocytes Relative 17 Not Estab. % [facility] Monocytes 9 Not Estab. % [facility] Eosinophils Relative 5 Not Estab. % [facility] Basophils Relative 1 Not Estab. % [facility] Neutrophils Absolute 3.4 1.4 - 7.0 x10E3/uL [facility] Lymphocytes Absolute 0.8 0.7 - 3.1 x10E3/uL [facility] Monocytes Absolute 0.4 0.1 - 0.9 x10E3/uL [facility] Eosinophils Absolute 0.2 0.0 - 0.4 x10E3/uL [facility] Basophils Absolute 0.0 0.0 - 0.2 x10E3/uL [facility] Immature Granulocytes 0 Not Estab. % [facility] Immature Grans (Absolute) 0.0 0.0 - 0.1 x10E3/uL [facility] Blood specimen (specimen) Venous blood / Unknown 03/22/2025 12:27 PM EDT 03/22/2025 us Severo Tee MD LAB BLOOD ORDERABLES Final Resu lt Performing Organization Address City/[facility]/ZIP Co de Phone Number [facility] [address] [place] [address] * PTH, intact (03/22/2025 12:27 PM EDT) Only the most recent of2 resultswithin the time period is included. PTH 44 15 - 65 pg/mL [facility] Blood specimen (specimen) Venous blood / Unknown 03/22/2025 12:27 PM EDT 03/22/2025 Severo Tee MD LAB BLOOD ORDERABLES Final Resu lt Performing Organization Address [facility] Co de Phone Number [facility] [place] [address] [place] [address] * (ABNORMAL) Ferritin (03/22/2025 12:27 PM EDT) Ferritin 26(L) 30 - 400 ng/mL [facility] Blood specimen (specimen) Venous blood / Unknown 03/22/2025 12:27 PM EDT 03/22/2025 Severo Tee MD LAB BLOOD ORDERABLES Final Resu lt Performing Organization Address City/[facility]/ZIP Co de Phone Number [facility] [address] [place] [address] * (ABNORMAL) Renal function panel (03/22/2025 12:27 PM EDT) Only the most recent of2 resultswithin the time period is included. Glucose 89 70 - 99 mg/dL [facility] BUN 42(H) 8 - 27 mg/dL [facility] Creatinine 3.48(H) 0.76 - 1.27 mg/dL [facility] eGFR CKD-EPI CR 2020 19(L) >59 mL/min/1.7 3 [facility] BUN/Creatinine Ratio 12 10 - 24 [facility] Sodium 140 134 - 144 mmol/L [facility] Potassium 4.6 3.5 - 5.2 mmol/L [facility] Chloride 108(H) 96 - 106 mmol/L [facility] Bicarbonate (CO2) 18(L) 20 - 29 mmol/L [facility] Calcium 8.9 8.6 - 10.2 mg/dL [facility] Albumin 4.3 3.9 - 4.9 g/dL [facility] Phosphorus 4.2(H) 2.8 - 4.1 mg/dL [facility] Blood specimen (specimen) Venous blood / Unknown 03/22/2025 12:27 PM EDT 03/22/2025 us Severo Tee MD LAB BLOOD ORDERABLES Final Resu lt [facility] [address] [place] [address] * (ABNORMAL) Basic metabolic panel (03/22/2025 12:27 PM EDT) Pathologist [facility] Glucose 89 70 - 99 mg/dL [facility] BUN 46(H) 8 - 27 mg/dL [facility] Creatinine 3.53(H) 0.76 - 1.27 mg/dL [facility] eGFR CKD-EPI CR 2020 19(L) >59 mL/min/1.7 3 [facility] BUN/Creatinine Ratio 13 10 - 24 [facility] Sodium 141 134 - 144 mmol/L [facility] Potassium 4.9 3.5 - 5.2 mmol/L [facility] Chloride 108(H) 96 - 106 mmol/L [facility] Bicarbonate (CO2) 18(L) 20 - 29 mmol/L [facility] Calcium 8.8 8.6 - 10.2 mg/dL [facility] Blood Venous blood / Unknown 03/22/2025 12:27 PM EDT 03/22/2025 [facility] LAB BLOOD ORDERABLES Final Result Performing Organization Address City/[facility]/ZIP Co de Phone Number [facility] [address] [place] [address] * (ABNORMAL) Urine Albumin / Creatinine Ratio (03/01/2025 1:03 PM EDT) Albumin, Urine 592.3 Not Estab. ug/mL [facility] Comment: Results confirmed on dilution. Albumin/Creatin ine Ratio 529(H) 0 - 29 mg/g creat [facility] Comment: Normal: 0 - 29 Moderately increased: 30 - 300 Severely increased: >300 03/01/2025 1:03 PM EDT 03/01/2025 [facility] LAB URINE ORDERABLES Final Result Performing Organization Address City/[facility]/ZIP Co de Phone Number [facility] [place] [address] [place] [address] * (ABNORMAL) CBC (03/01/2025 1:03 PM EDT) WBC 5.5 3.4 - 10.8 x10E3/uL [facility] RBC 3.38(L) 4.14 - 5.80 x10E6/uL [facility] Hemoglobin 10.5(L) 13.0 - 17.7 g/dL [facility] Hematocrit 31.2(L) 37.5 - 51.0 % [facility] MCV 92 79 - 97 fL [facility] MCH 31.1 26.6 - 33.0 pg [facility] MCHC 33.7 31.5 - 35.7 g/dL [facility] RDW 12.7 11.6 - 15.4 % [facility] Platelets 114(L) 150 - 450 x10E3/uL [facility] 03/01/2025 1:03 PM EDT 03/01/2025 [facility] LAB BLOOD ORDERABLES Final Result [facility] [address] [place] [address] * (ABNORMAL) Magnesium (03/01/2025 1:03 PM EDT) Magnesium 2.4(H) 1.6 - 2.3 mg/dL [facility] 03/01/2025 1:03 PM EDT 03/01/[address] [facility]LOOD ORDERABLES Final Result [facility] [address] [place] [address] * (ABNORMAL) EXT RESULT ENTRY (10/02/2023) Sodium [...] Most Recently Relevant to Health Maintenance Insurance [facility] Medicaid Care Teams Risk Control Consultant Relationship Specialty Start Date End Date William Puentes MD [address] [place] [address] [address] [place], [place] PCP - General Internal Medicine 12/27/22
[2025-06-15 11:42] VITALS: BMI 25.8
--- NOTE | 2025-06-15 12:08 | HO.ANESPROP2 ---
Documented by User: Fabiana Hassan NP 06/15/25 12:17 HPI - Anesthesia Eval Consult details Narrative: 65yo M for Colonoscopy Hx WPW s/p ablation, afib (previously on eliquis, no asa only) - per patient, does not follow cardiology CKD St 5: Follows [facility] - no dialysis yet, but discussion of future need. Stable at last office visit 03/2025 [facility] Active Problems Active Problems: All Active Problems Paroxysmal A-fib (Acute) Diabetic polyneuropathy (Acute) Diabetic retinopathy (Acute) Controlled diabetes mellitus with diabetic cataract (Acute) Depression (Acute) Non-occlusive thrombus (Acute) Hypertrophic toenail (Acute) CKD (chronic kidney disease), stage IV (Acute) CKD stage 4 due to type 2 diabetes mellitus (Acute) HTN (hypertension) (Acute) HLD (hyperlipidemia) (Acute) Osteoarthritis of left knee (Acute) Wound, open, foot (Acute) Prepatellar bursitis, left knee (Acute) Effusion, left knee (Acute) Diabetes mellitus (Acute) Painful arc syndrome of right shoulder (Acute) Past Medical History Medical History Diabetic polyneuropathy Diabetic retinopathy Controlled diabetes mellitus with diabetic cataract Depression Non-occlusive thrombus CKD (chronic kidney disease), stage IV HTN (hypertension) HLD (hyperlipidemia) Kidney disease Diabetic acidosis, type I High cholesterol Family History Family History Mother Diabetes A-fib Kidney failure Father Diabetes Heart problem Social History Social History Housing: House Are you a primary hearing care professional to a significant other at home: No Do you presently have visiting nurse or other home services: No Alcohol intake: current Alcohol intake frequency: holidays/special occasions only Patient Tobacco Use Status: Never used Tobacco Second Hand Smoke Exposure: No Use of substances other than those prescribed or required for medical reasons: No Have you been hit, kicked, punched, or otherwise hurt by someone within the past year? 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[employer] Cognitive needs: No Hearing needs: No Vision needs: Yes (Reading glasses) Meds Allergies Allergy/AdvReac Type Severity Reaction Status Date / Time No Known Allergies Allergy Verified 05/28/25 11:36 Home Medications ?Medication ?Instructions ?Recorded ?Confirmed ?Last Taken ?Type amlodipine 5 mg tablet 5 mg PO DAILY 12/29/21 06/17/25 06/17/25 History mirtazapine 15 mg tablet 15 mg PO QPM 12/29/21 06/17/25 Unknown History cholecalciferol (vitamin D3) 50 50 mcg PO DAILY 01/11/25 06/17/25 Unknown History mcg (2,000 unit) capsule carvedilol 25 mg tablet 25 mg PO BID 05/28/25 06/17/25 06/17/25 History furosemide 20 mg tablet 20 mg PO DAILY 05/28/25 06/17/25 Unknown History hydralazine 100 mg tablet 100 mg PO BID 05/28/25 06/17/25 Unknown History Exam Height,Weight and Vital Signs: Height 5 ft 7 in Weight 74.843 kg Pertinent Lab Results Pertinent Lab Results: Laboratory Tests 01/11/25 05/28/25 16:43 12:31 WBC 6.2 Hgb 11.2 L Hct 33.4 L Plt Count 152 L Sodium 145 Potassium 4.0 Chloride 110 H Carbon Dioxide 27 BUN 70 H Creatinine 4.37 H* Assessment and Plan Assessment Anesthesia Assessment: Chart Reviewed Documented by User: Alanis Witt MD 06/17/25 10:52 PMFSH Past Medical History Medical History Diabetic polyneuropathy Diabetic retinopathy Controlled diabetes mellitus with diabetic cataract Depression Non-occlusive thrombus CKD (chronic kidney disease), stage IV HTN (hypertension) HLD (hyperlipidemia) Kidney disease Diabetic acidosis, type I High cholesterol Family History Family History Mother Diabetes A-fib Kidney failure Father Diabetes Heart problem Family history of problems with anesthesia: No Surgical History History of Problems with Anesthesia: No Social History Social History Housing: House Are you a primary hearing care professional to a significant other at home: No Do you presently have visiting nurse or other home services: No Alcohol intake: current Alcohol intake frequency: holidays/special occasions only Patient Tobacco Use Status: Never used Tobacco Second Hand Smoke Exposure: No Use of substances other than those prescribed or required for medical reasons: No Have you been hit, kicked, punched, or otherwise hurt by someone within the past year? 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[employer] Cognitive needs: No Hearing needs: No Vision needs: Yes (Reading glasses) Meds Allergies Allergy/AdvReac Type Severity Reaction Status Date / Time No Known Allergies Allergy Verified 05/28/25 11:36 Home Medications ?Medication ?Instructions ?Recorded ?Confirmed ?Last Taken ?Type amlodipine 5 mg tablet 5 mg PO DAILY 12/29/21 06/17/25 06/17/25 History mirtazapine 15 mg tablet 15 mg PO QPM 12/29/21 06/17/25 Unknown History cholecalciferol (vitamin D3) 50 50 mcg PO DAILY 01/11/25 06/17/25 Unknown History mcg (2,000 unit) capsule carvedilol 25 mg tablet 25 mg PO BID 05/28/25 06/17/25 06/17/25 History furosemide 20 mg tablet 20 mg PO DAILY 05/28/25 06/17/25 Unknown History hydralazine 100 mg tablet 100 mg PO BID 05/28/25 06/17/25 Unknown History Exam Airway Mallampati Class: II TM Dist: >3cm Neck ROM: Full Heart: rrr Lungs: cta Assessment and Plan Assessment Anesthesia Assessment: Anesthesia Plan Discussed Final Anesthetic Review Family History of Problems with Anesthesia: No History of Problems with Anesthesia: No NPO: Yes ASA Class: III Final Preanesthetic Review: No Changes in Pt Med Stat, Meds/Allgs Chart Reviewed, Consent Obtained/Reviewed and Anes Risks/Benef Reviewed Patient Risk: Intermediate Procedure Risk: Low Anesthetic Plan Anesthetic Plan: MAC: and Agree w/ Assess. and Plan Disposition: Standard PACU
[2025-06-17 10:03] VITALS: BP 121/82; PULSE 62; RESP 14; TEMP 36.4; O2SAT 96
--- NOTE | 2025-06-17 10:04 | PC.NURSE ---
patient has glucose sensor to left upper arm. Blood Sugar 110 at 1000 verified on patient device. Anesthesia aware.
[2025-06-17] MEDS: Lactated Ringers 1,000 ML 100 ML IVCONT (10:11)
--- NOTE | 2025-06-17 10:43 | P.HPSUR_ITS ---
Pre-Procedural Eval Section A - 24 Hr Update-Section A only Date of Service: 06/17/25 Section B - Complete if H&P > 30 days Chief Complaint: screening Relevant Family History (Specify if Yes): No Relevant Social History: None Present Medications: see Short Stay Collaborative assessment Medical History: Significant History (Diabetic polyneuropathy Diabetic retinopathy Controlled diabetes mellitus with diabetic cataract Depression Non- occlusive thrombus CKD (chronic kidney disease), stage IV HTN (hypertension) HLD (hyperlipidemia) Kidney disease Diabetic acidosis, type I High cholesterol) History of Previous Operations: Relevant previous surgery/procedure and date(s) (colonsocopy) Allergies: Allergies Allergy/AdvReac Type Severity Reaction Status Date / Time No Known Allergies Allergy Verified 05/28/25 11:36 Review of Systems Sugical H&P ROS: Negative: Constitution, Cardiovascular, Respiratory, Neurological, Psychiatric, Hem-Onc, Allergic/Immunologic, Gastrointestinal, Genitourinary, Musculoskeletal, Integumentary, Endocrine and Eyes/Ears/Nose/ Throat Exam Surgical H&P Exam: Normal: HEENT, Normal: Heart, Normal: Lungs, Normal: Extremities, Normal: Abdomen, Normal: Skin and Normal: Neurological Plan Diagnosis/Plan: Unchanged I have reviewed the history and physical and performed a pertinent physical examination on my patient. No changes have occurred unless specified. Time Spent With Patient Time: Total time managing care of this patient today ____ minutes.
--- NOTE | 2025-06-17 11:13 | P.OPN-COLO_ITS ---
Colonoscopy Operative Note Operative Note Date of Service: 06/17/25 Narrative: Operative Information Procedure Description: Colonoscopy Indication: screening Anesthesia: MAC COLONOSCOPY Instrument: Olympus variable stiffness pediatric scope 190L Colonoscopy Monitoring: Vital signs and clinical assessment, continuous EKG monitoring, Pulse oximetry, Carbon Dioxide monitoring and blood pressure monitoring were done throughout the procedure. Colon withdrawal time was 10 minutes. Procedure: The patient was placed in the left lateral decubitis position and pre-procedure medications were administered. After a digital rectal examination of the ano-rectum, the video colonoscope was inserted into the rectum and advanced through the colon to the cecum/TI. The colonoscope was slowly withdrawn in a retrograde panoramic fashion and the colon mucosa was carefully examined including a retroflexed view of the rectum. Findings and interventions are described below. Procedure Difficulty: easy Findings: Terminal Ileum-normal Cecum:normal right sided retroflexion- normal Ascending Colon: normal Transverse Colon -normal Descending Colon:normal Sigmoid Colon: normal Rectum: Retroflexion with small to moderate internal hemorrhoids seen, grade I Anorectum - normal Intervention: none Colon preparation: Hampton Bowel Preparation Scale Right colon; 2 Transverse colon: 2 Left colon; 1-2 (0 = Unprepared colon segment with mucosa not seen due to solid stool that cannot be cleared. 1 = Portion of mucosa of the colon segment seen, but other areas of the colon segment not well seen due to staining, residual stool and/or opaque liquid. 2 = Minor amount of residual staining, small fragments of stool and/or opaque liquid, but mucosa of colon segment seen well. 3 = Entire mucosa of colon segment seen well with no residual staining, small fragments of stool or opaque liquid) Impression and Post Procedure Diagnosis: internal hemorrhoids Plan: High fiber diet leaflet Avoid straining at stool, epsom salts and sitz bath, anusol supps or cream Repeat Colonoscopy in 5 years due to some areas of fair prep or earlier if clinically indicated Above findings were reviewed with the patient and relevant handouts were provided if indicated.
[2025-06-17 11:20] VITALS: BP 115/49; PULSE 102; RESP 14; TEMP 36.1; O2SAT 96
[2025-06-17 11:30] VITALS: BP 104/56; PULSE 105; RESP 12; O2SAT 97
[2025-06-17 11:46] VITALS: BP 135/85; PULSE 108; RESP 15; TEMP 36.7; O2SAT 97
== END 2025-06-17 12:11 | disposition home or self-care (01) ==
PROVIDERS: PCP Physician Assistant; Visit Provider Internal Medicine Gastroenterology
PROC: 0DJD8ZZ Inspection of Lower Intestinal Tract, Via Natural or Artificial Opening Endoscopic (ICD-10-PCS; CPT 45378; principal; 2025-06-17 12:20)
DX: Z12.11 Encounter for screening for malignant neoplasm of colon (principal); K64.0 First degree hemorrhoids; E11.22 Type 2 diabetes mellitus with diabetic chronic kidney disease; I12.9 Hypertensive chronic kidney disease with stage 1 through stage 4 chronic kidney disease, or unspecified chronic kidney disease; N18.4 Chronic kidney disease, stage 4 (severe); E11.36 Type 2 diabetes mellitus with diabetic cataract; H26.9 Unspecified cataract; E11.319 Type 2 diabetes mellitus with unspecified diabetic retinopathy without macular edema; E11.42 Type 2 diabetes mellitus with diabetic polyneuropathy; I48.91 Unspecified atrial fibrillation; E78.00 Pure hypercholesterolemia, unspecified; I82.90 Acute embolism and thrombosis of unspecified vein; Z79.82 Long term (current) use of aspirin; Z79.899 Other long term (current) drug therapy
CPT/HCPCS: 45378; J2003; J2704

== ENCOUNTER → 2025-06-17 09:08 | Outpatient (BNV) | payer OTHER, SELFPAY | PROVIDERS: PCP Physician Assistant; Visit Provider Internal Medicine Gastroenterology | DX: Z12.11 Encounter for screening for malignant neoplasm of colon (principal); K64.0 First degree hemorrhoids | CPT/HCPCS: 45378 ==

== ENCOUNTER 2025-07-02 08:13 | Outpatient (AMB) | payer OTHER, SELFPAY ==
--- NOTE | 2025-07-02 08:26 | MHC.OFFVIS ---
Intake Visit Reasons: OV- LT knee OA, last injection 03/09/24 Intake Note: Juanito is a 65 year old male who presents today for a follow up of left knee OA. He was last seen for his knee on 03/09/24 and was given an injection. Today patient reports injection provided him with relief, he started to notice his discomfort about 4-5 months ago. He is requesting to repeat injections. Allergies No Known Allergies Allergy (Verified 07/02/25 08:32) Medication List - Last Reconciled 07/02/25 by Lilli Rodriguez PA-C amlodipine 5 mg PO DAILY aspirin 81 mg PO DAILY bisacodyl (Dulcolax (bisacodyl)) 5 mg PO BEDTIME 5 days bisacodyl (Dulcolax (bisacodyl)) 20 mg (4 x 5 mg) PO ONCE 1 day carvedilol 25 mg PO BID cholecalciferol (vitamin D3) 50 mcg PO DAILY flash glucose sensor (FreeStyle Andre 14 Day Sensor kit) As directed furosemide 20 mg PO DAILY hydralazine 100 mg PO BID mirtazapine 15 mg PO QPM pen needle, diabetic As directed polyethylene glycol 3350 (Miralax) 17 grams PO BID polyethylene glycol 3350 (Miralax) 238 grams PO ONCE HPI HPI OV- LT knee OA, last injection 03/09/24: Details: 65-year-old male presents to the office today for pain in the left knee. He had an injection done in the left knee on 03/09/2024 which was helpful up until approximately 4-5 months ago. He complains of pain in the left knee with prolonged standing sitting and going up and downstairs. He has had no recent injuries. [facility] Medical History Diabetic polyneuropathy Diabetic retinopathy Controlled diabetes mellitus with diabetic cataract Depression Non-occlusive thrombus CKD (chronic kidney disease), stage IV HTN (hypertension) HLD (hyperlipidemia) Kidney disease Diabetic acidosis, type I High cholesterol Family History Mother Diabetes A-fib Kidney failure Father Diabetes Heart problem Social History Housing: House Are you a primary care administrative tech to a significant other at home: No Do you presently have visiting nurse or other home services: No Alcohol intake: current Alcohol intake frequency: holidays/special occasions only Patient Tobacco Use Status: Never used Tobacco Second Hand Smoke Exposure: No service: No Current occupational status: employed 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[employer] Cognitive needs: No Hearing needs: No Vision needs: Yes (Reading glasses) Review of Systems Const All systems reviewed & are unremarkable except as noted in HPI and below Physical Exam Const General: cooperative, healthy appearing, comfortable, no acute distress, well developed and alert Orientation/consciousness: patient oriented x3 HEENT Head: Yes normal to inspection, Yes normocephalic and Yes atraumatic Eyes General: appearance normal, both eyes and all related structures Resp Effort & Inspection: normal respiratory effort and able to speak in complete sentences Cardio Rate: regular rate Peripheral pulses: Peripheral pulses 2+ throughout GI Palpation (GI): Soft to palpation Skin Lesions: no lesions Rashes: no rashes Neuro General: patient oriented x3 Extrem Other: Left knee: Skin intact, no erythema or joint effusion. Tenderness along the medial joint line. Full ROM with crepitus. Negative Naveen?s. No ligamentous laxity. NVI. ? Office Procedures AMB Joint Injection/Aspiration Joint Injection/Aspiration Primary Site: left knee Prep: site was prepped using aseptic technique, ethochloride spray was applied and injection warnings given Injected: 40 mg of, with 3 mL of, 1% plain lidocaine, 0.25% bupivacaine, in the joint and decadron Approach Used: anterolateral Procedure: The patient tolerated the procedure well and there was some relief with the local anesthesia Coding 33071 - Glenohumeral/Tronchanteric Bursa/Intraarticular Procedure code (CPT) selection complete Results Reviewed Results Reviewed: Xrays were obtained in the office today and personally reviewed by me of the left knee show mild arthritic changes Assessment & Plan Assessment & Plan (1) Osteoarthritis of left knee: Code(s): M17.12 - Unilateral primary osteoarthritis, left knee Category: Medical Plan: We discussed options today, which include steroid injection. The patient did consent to move forward with the injection, which was tolerated well.? I recommended rest, ice and elevation and OTC antiinflammatories prn for discomfort. If symptoms persist over the next 6-8 weeks, they will contact our office, otherwise, prn We also discussed their diabetes and the effect the steroid can have on thier blood glucose levels; therefore, they will continue to monitor these very closely over the next 72 hours Orders: Orders XR knee LT 3V Today M25.562 - Pain in left knee Coding Level of Care Code Est Pt Level 3 (58221) Complex EM visit Add On G2211 Diagnoses Osteoarthritis of left knee M17.12 CPT Codes Coding - Joint 7: 19213 - Glenohumeral/Tronchanteric Bursa/Intraarticular ([id number])
== END 2025-07-02 09:44 | disposition home or self-care (01) ==
LOC: HO.HOS 08:13
PROVIDERS: PCP Internal Medicine; Visit Provider Physician Assistant
DX: M17.12 Unilateral primary osteoarthritis, left knee (principal)
CPT/HCPCS: 20610; 99213

== ENCOUNTER → 2025-07-02 08:15 | Outpatient (BNV) | payer OTHER, SELFPAY | PROVIDERS: Visit Provider Radiology Diagnostic Radiology | DX: M19.072 Primary osteoarthritis, left ankle and foot (principal); M25.472 Effusion, left ankle | CPT/HCPCS: 73562 ==

== ENCOUNTER 2025-07-02 14:32 | Outpatient (REF) | payer OTHER, SELFPAY ==
--- NOTE | ~2025-07-02 | XR_ITS ---
EXAMINATION: XR KNEE, LEFT CLINICAL INFORMATION: M25.562 - Pain in left knee COMPARISON: Previous x-rays most recent March 2024 TECHNIQUE: AP standing view of both knees and lateral and sunrise view of the left knee. FINDINGS: Bone alignment is normal. No fracture or dislocation. Small osteophytes at the patellofemoral joint. Joint spaces are otherwise normal. Small joint effusion. Severe atherosclerotic disease. Standing AP view of the right knee demonstrates mild degenerative changes at the medial femoral tibial joint and atherosclerotic disease. XR/XR knee LT 3V IMPRESSION: Mild degenerative changes at the patellofemoral joint and small joint effusion. Severe atherosclerotic disease. Electronically signed by: Lexie Corral MD 07/02/2025 08:29 AM EDT
--- OUTSIDE RECORDS SUMMARY | 2025-07-04 14:34 | XMS_ITS | Clinical Summary ---
Author Organization [facility] Address [address] [address] Phone Care Team Providers Care Mold Swabber Name Role Phone William Puentes MD Primary Care Provider [phone] Allergies No known active allergies Medications mirtazapine [...] (05/08/2023): Sees psych at [address]( [employer])Has tolerated [id number] in the past. Paresthesia of hand 05/08/2023 05/08/2023 Overview (05/08/2023): Referred to hand and ingredient specialist at [facility].10/29/14: EMG: There is nerve conduction study [...] neuropathy. Type 2 diabetes mellitus 05/08/2023 023 Jmjsp-Abzttutus-Wbmux pattern 05/08/2023 Overview (05/08/2023): EP study on [...] Encounters Date Type Department Care Team Description 06/20/2025 Orders Only [facility] [address] [place] [phone] Karoline Heart ARNP Chronic kidney disease, stage 4 (severe) (HCC); Hypertensive disorder; Other proteinuria; Anemia in chronic kidney disease from Last [...] Office Visit [facility] [address] [phone] Severo Tee MD [address] [phone] Health Maintenance Due Date Last [...] Most Recently Relevant to Health Maintenance Insurance [facility] Medicaid Care Teams Mold Swabber Relationship Specialty Start Date End Date William Puentes MD [address] [place] [address] [address] [place], [place] PCP - General Internal Medicine 12/27/22
--- OUTSIDE RECORDS SUMMARY | 2025-07-04 14:34 | XMS_ITS | Clinical Summary ---
Author Organization [facility] Address [address] [place] [address] Phone Care Team Providers Care Manager Recruiting Name Role Phone Delvin Sweeney MD Primary Care Provider [phone] Allergies No known active allergies Encounters Date Type Department Care Team Description 04/12/2025 1:00 PM EDT Office Visit [facility] [address] [phone] Lyndon Baugh DPM Poorly controlled type 2 [...] Upcoming Encounters Date Type Department Care Team ([facility] Contact Info) Description 07/06/2025 3:00 PM EST Office Visit [facility] [address] [phone] Lyndon Baugh DPM [address] [place] [phone] Health Maintenance Due Date Last Done Comments Colorectal Cancer Screening: Colonoscopy 1961 Diabetes: Annual Foot Exam 1971 Diabetes: Annual Retina Eye Exam 1971 RSV Immunization Adult Patients (1 - Risk 50-74 years 1-dose series) 2011 Zoster Vaccines (1 of 2) 2011 Pneumococcal Vaccine: 50+ Years (2 of 2 - PCV) 07/02/2015 07/02/2014 DTaP,Tdap,and Td Vaccines (3 - Td or Tdap) 03/18/2023 03/18/2013, 07/03/2008 Depression Screening 09/02/2024 Cholesterol Screening (Lipid Panel) 01/15/2025 Diabetes: Annual Urine Albumin-Creatinine Ratio (uACR) 01/15/2025 Diabetes: Blood Sugar Control Test (HGBA1C) 01/15/2025 HIV Screening 01/15/2025 Hepatitis C Screening 01/15/2025 Social Influencers of Health Screening 01/15/2025 COVID-19 Vaccine ( season) 2025 08/30/2021, 12/30/2020, 11/24/2020 Influenza Vaccine (#1) 2025 4, 08/12/2013, 05/15/2011, Additional history exists Diabetes: Annual GFR (Glomerular Filtration Rate) 03/22/2026 03/22/2025 Hypertension/CHF/CAD Annual BMP Blood Test 03/22/2026 03/22/2025 HIB Vaccines Aged Out No longer eligi [...] to complete this topic Insurance MEDICAID - [place] Care Teams Manager Recruiting Relationship Specialty Start Date End Date Delvin Sweeney MD [facility] [address] [place] [address] PCP - General Internal Medicine 01/15/25
== END 2025-07-02 14:33 | disposition home or self-care (01) ==
LOC: HO.HOSX 14:32
PROVIDERS: Visit Provider Physician Assistant
DX: M17.12 Unilateral primary osteoarthritis, left knee (principal)
CPT/HCPCS: 20610; 73562; 99212; J0665; J1100; J2003